=== PATIENT | female | born 1985 | race Caucasian/White ===

== ENCOUNTER 2017-12-28 19:53 | Inpatient (IN) | payer MEDICAID, OTHER ==
[~2017-12-28] VITALS: Ht 160 cm; Wt 69.4 kg
[2017-12-28 20:00] VITALS: BP 105/68
--- NOTE | 2017-12-28 20:30 | NUR ---
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
--- NOTE | 2017-12-28 20:35 | NUR ---
CALLED DR. DELACRUZ WOOD FLOORING SPECIALIST FOR REGRADING FOR NEW ADMISSION WITH NEW ORDER.
[2017-12-28] MEDS ORDERED: MAGNESIUM HYDROXIDE 30 ML LIQUID UDC GT PRN (21:15)
[2017-12-28] MEDS ORDERED: FLEET ENEMA 133 ML BOTTLE RC PRN (21:15)
[2017-12-28] MEDS ORDERED: BISACODYL 10 MG SUPP.RECT RC PRN (21:15)
[2017-12-28] MEDS ORDERED: HYDROCODONE/APAP 5-325MG TABLET PO PRN (21:15)
[2017-12-28] MEDS ORDERED: ACETAMINOPHEN 650 MG/20 ML UDC- FOR SA ONLY GT PRN (21:15)
[2017-12-28] MEDS: DOCUSATE SODIUM 100 MG/10 ML LIQUID UDC GT SCH (21:56)
[2017-12-29 00:10] VITALS: BP 101/63
[2017-12-29] MEDS ORDERED: FIBERSOURCE HN 1000ML LIQUID GT PRN (00:45)
[2017-12-29 04:00] VITALS: BP 103/62
--- NOTE | 2017-12-29 06:48 | NUR ---
PVR AT 00.00=50ML AND 06.17IP=[id number] CONTINUE PVR ORDERED.
[2017-12-29] MEDS ORDERED: HYDROGEN PEROXIDE 3% 118 ML BOTTLE TP PRN (08:00)
[2017-12-29 08:13] VITALS: BP 118/76
[2017-12-29] MEDS: HYDROGEN PEROXIDE 3% 118 ML BOTTLE TP SCH ×2 (08:53→20:37)
[2017-12-29] MEDS: FAMOTIDINE 20 MG TABLET GT SCH ×2 (08:53→20:35)
[2017-12-29] MEDS: MIRALAX 17 GM POWD.PACK GT SCH (08:53)
[2017-12-29] MEDS: DOCUSATE SODIUM 100 MG/10 ML LIQUID UDC GT SCH ×2 (08:53→20:33)
[2017-12-29] MEDS ORDERED: MODAFINIL 100 MG TABLET GT SCH (09:00)
--- NOTE | 2017-12-29 10:00 | NUR ---
SPOKE TO MIGUEL WIGGINS'S MOMAND MADE HER AWARE OF THE PLAN OF CARE,AND NEW ORDERS,PT'S MOM AGREED. Addendum: 12/30/17 at 1742 by HANH TATE RN MOM AND MADE HER AWARE.
--- NOTE | 2017-12-29 15:42 | NUR ---
SW met with patient's mother Mia and obtained signatures on the following forms (forms were translated by JUVENTINO Jorgensen): 1) Conditions of Admission 2) Patient Rights Acknowledgement 3) Documentation of Preferred Intensity of Care 4) Voluntary Prior Express Consent Form 5) [place] Standard Admission Agreement For Longterm Facilities and Intermediate Care Facilities Patient's Bill of Rights provided to patient's mother, along with signed copies of the above forms. SW addressed patient's mother's concerns regarding her desire to stay with patient 24 hours a day. SW allowed Mia to express her feelings, during which Mia became tearful. SW provided supportive counseling and discussed the importance of self-care. Mia expressed understanding and agreement. Mia agreed that she will stay with her daughter until 11 or 12pm, the latest, after which she will go home to rest, before returning in the morning. Charge nurse Serena informed.
[2017-12-29] MEDS ORDERED: CALMOSEPTINE 113 GM OINTMENT TP PRN (15:45)
--- NOTE | 2017-12-29 16:00 | NUR ---
CHRISTIANO informed patient's mother that patient can receive annual dental services and eye exams in subacute. CHRISTIANO asked patient's mother if she would like for SW to schedule the initial appointments, and patient's mother agreed. CHRISTIANO spoke with Janessa at Dr. Ramos's office [phone] and scheduled patient's initial dental exam for 01/11/18. Patient's mother informed. CHRISTIANO then spoke with Marina at Dr. Arellano's office [phone] and scheduled a tentative initial eye exam appointment for 01/08/18. Marina to call back stayer to the date to confirm appointment date/time. Patient's mother informed.
[2017-12-29] MEDS ORDERED: TUBERCULIN,PURIF.PROT.DERIV. 5 TU/0.1 ML TEST ID ONE (17:00)
--- NOTE | 2017-12-29 17:00 | NUR ---
DR AVENDANO CALL BACK ,AWARE OF THE PHARMACY REQUEST TO HAVE A PSYCH CONSULT PROTOCOL BEFORE STARTING PROVIGIL,AWARE THE BLADDER SCAN RESULTS,WITH NEW ORDERS NOTED.
[2017-12-29 20:00] VITALS: BP 101/65
[2017-12-29] MEDS: LEVETIRACETAM 500 MG/5 ML LIQUID UDC GT SCH (20:33)
[2017-12-29] MEDS: CALMOSEPTINE 113 GM OINTMENT TP SCH (20:37)
[2017-12-29] MEDS: TAMSULOSIN HCL 0.4 MG CAP.SR.24H XX SCH (20:37)
[2017-12-29] MEDS: HEPARIN SODIUM,PORCINE 5,000 UNITS/ML VIAL SQ SCH (20:39)
--- NOTE | 2017-12-30 | NUR ---
2000-98.5,105,20,101/65,[id number]%, MOTHER AT BEDSIDE, NO RESPIRATORY DISTRESS,2400-98.8,106,20,102/63,[id number]%,REPOSITIONED, NOT RESPONSIVE TO VERBAL STIMULI, PT CHECKED FREQUENTLY.
[2017-12-30 00:15] VITALS: BP 102/63
[2017-12-30 04:00] VITALS: BP 103/61
[2017-12-30 08:00] VITALS: BP 97/62
[2017-12-30] MEDS: LEVETIRACETAM 500 MG/5 ML LIQUID UDC GT SCH ×2 (08:46→20:39)
[2017-12-30] MEDS: MIRALAX 17 GM POWD.PACK GT SCH (08:46)
[2017-12-30] MEDS: FAMOTIDINE 20 MG TABLET GT SCH ×2 (08:46→20:41)
[2017-12-30] MEDS: DOCUSATE SODIUM 100 MG/10 ML LIQUID UDC GT SCH ×2 (08:46→20:39)
[2017-12-30] MEDS: CALMOSEPTINE 113 GM OINTMENT TP SCH ×3 (08:47→20:42)
[2017-12-30] MEDS: HYDROGEN PEROXIDE 3% 118 ML BOTTLE TP SCH ×2 (08:47→20:42)
[2017-12-30] MEDS: HEPARIN SODIUM,PORCINE 5,000 UNITS/ML VIAL SQ SCH ×2 (08:59→20:44)
--- NOTE | 2017-12-30 12:30 | NUR ---
PT TRANSFER TO RADIOLOGY FOR CT SCAN OF HEAD WITHOUT CONTRAST,ACCOMPANIED BY THE RADIOLOGIST ,PRIMARY NURSE AND THE MOTHER,IN STABLE CONDITION.
--- NOTE | 2017-12-30 13:08 | NUR ---
PT BACK FROM RADIOLOGY ,IN STABLE CONDITION.
--- NOTE | 2017-12-30 14:04 | NUR ---
Psychosocial assessment completed.
--- NOTE | 2017-12-30 14:30 | NUR ---
Resident noted with sacral fissure while cleaning pt. charge nurse made aware. Picture and measurements were taken and documented. MD made aware with new orders noted and carried out. Initial treatment done as ordered pt.tolerated well. Site remains clean and with no signs of bleeding noted. kept pt clean and comfortable.
--- NOTE | 2017-12-30 16:30 | NUR ---
LEFT MESSAGE TO ROMANA REGARDING THE H AND P,NEEDS TO BE COMPLETED ,SPOKE TO AJ.
--- NOTE | 2017-12-30 17:34 | NUR ---
SEEN AND EXAMINED BY DR ELAM ,WITH NO NEW ORDERS NOTED.
[2017-12-30 20:00] VITALS: BP 102/57
[2017-12-30] MEDS: NEOMY/BACITRA/POLYMYXIN B OINT UD PACKET TP SCH (20:42)
[2017-12-30] MEDS: TAMSULOSIN HCL 0.4 MG CAP.SR.24H XX SCH (20:43)
--- NOTE | 2017-12-30 22:00 | NUR ---
Patient is afebrile, trach intact and patent, no signs of any respiratory distress noted, on aspiration and seizure precaution, JT/GT working , fluids given as ordered, kept clean and comfortable , needs attended, Mother at bedside.
--- NOTE | 2017-12-30 23:04 | NUR ---
Afebrile, on seizure and aspiration precautions, gt/JT intact, feeding tolerating well, no nausea or vomiting noted, head and abdominal scabs are clean and no bleeding noted, turned and repositioned, kept clean and comfortable.
[2017-12-31 00:15] VITALS: BP 110/60
[2017-12-31 04:00] VITALS: BP 112/64
[2017-12-31] MEDS: FIBERSOURCE HN 1000ML LIQUID GT PRN ×2 (04:30→23:13)
[2017-12-31 08:00] VITALS: BP 114/71
[2017-12-31] MEDS: LEVETIRACETAM 500 MG/5 ML LIQUID UDC GT SCH ×2 (08:57→20:55)
[2017-12-31] MEDS: DOCUSATE SODIUM 100 MG/10 ML LIQUID UDC GT SCH ×2 (08:57→20:55)
[2017-12-31] MEDS: CALMOSEPTINE 113 GM OINTMENT TP SCH ×4 (08:57→20:57)
[2017-12-31] MEDS: FAMOTIDINE 20 MG TABLET GT SCH ×2 (08:57→20:56)
[2017-12-31] MEDS: MIRALAX 17 GM POWD.PACK GT SCH (08:57)
[2017-12-31] MEDS: HEPARIN SODIUM,PORCINE 5,000 UNITS/ML VIAL SQ SCH ×2 (08:57→20:59)
[2017-12-31] MEDS: NEOMY/BACITRA/POLYMYXIN B OINT UD PACKET TP SCH ×2 (08:58→21:55)
[2017-12-31] MEDS: HYDROGEN PEROXIDE 3% 118 ML BOTTLE TP SCH ×2 (08:58→20:59)
--- NOTE | 2017-12-31 10:36 | NUR ---
DR. WYNN AWARE ALREADY OF CT SCAN OF HEAD WITHOUT CONTRAST AND STATED THAT HE ALREADY CALLED NEUROLOGIST HIMSELF,AND HE WILL FIND OUT IF PT. HAS GT OR J TUBE.
--- NOTE | 2017-12-31 10:40 | NUR ---
CORRECT ENTRY:DR. HAQ CALLED HIMSELF A PSYCHIATRISY DR. AGRAWAL FILOMENA NOT A NEUROLOGIST.
--- NOTE | 2017-12-31 17:00 | NUR ---
SEEN BY DR. ELAM AND WITH NEW ORDERS CARRIED OUT PT'S MOTHER IN AGREEMEMENT.SPUTUM C&S SPECIMEN WAS COLLECTED.
--- NOTE | 2017-12-31 19:02 | NUR ---
PT. SEEN BY DR. ADEBAYO BUTT (PSYCH) AND SPOKE WITH PT'S MOTHER AND IN AGREEMENT WITH NEW ORDER FOR PROVIGIL .STATED IN VIETNAMESE TO CH. NURSE THAT SHE WAS ALREADY FAMILIAR WITH MEDICATION PROVIGIL AND SHE BELIEVES THAT IS DOING GOOD TO PT.
--- NOTE | 2017-12-31 19:05 | NUR ---
MIGUEL (PT'S MOTHER ) SIGNED CONSENT FOR PROVIFIL.
[2017-12-31 20:00] VITALS: BP 105/65
[2017-12-31] MEDS: TAMSULOSIN HCL 0.4 MG CAP.SR.24H XX SCH (20:59)
[2018-01-01] MEDS: MODAFINIL 100 MG TABLET GT SCH (06:00)
[2018-01-01 08:06] VITALS: BP 98/62
[2018-01-01] MEDS: LEVETIRACETAM 500 MG/5 ML LIQUID UDC GT SCH ×2 (09:18→21:16)
[2018-01-01] MEDS: DOCUSATE SODIUM 100 MG/10 ML LIQUID UDC GT SCH ×2 (09:18→21:15)
[2018-01-01] MEDS: MIRALAX 17 GM POWD.PACK GT SCH (09:19)
[2018-01-01] MEDS: CALMOSEPTINE 113 GM OINTMENT TP SCH ×4 (09:19→21:18)
[2018-01-01] MEDS: NEOMY/BACITRA/POLYMYXIN B OINT UD PACKET TP SCH ×2 (09:20→21:18)
[2018-01-01] MEDS: FIBERSOURCE HN 1000ML LIQUID GT PRN (09:20)
[2018-01-01] MEDS: HYDROGEN PEROXIDE 3% 118 ML BOTTLE TP SCH ×2 (09:20→21:18)
[2018-01-01] MEDS: FAMOTIDINE 20 MG TABLET GT SCH ×2 (09:27→21:16)
[2018-01-01] MEDS: HEPARIN SODIUM,PORCINE 5,000 UNITS/ML VIAL SQ SCH ×2 (09:28→21:28)
--- NOTE | 2018-01-01 11:15 | NUR ---
DR. NGHIA Stallworth(PSYCH) SIGNED CONSET FOR PROVIGIL.
--- NOTE | 2018-01-01 14:28 | NUR ---
SW met with patient's mother today to check-in on how she and patients are adjusting to the unit. Patient's mother expressed feeling better then she did the first couple of days, and stated being thankful that the nurses are all very nice and helpful here. Patient's mother discussed some of the additional responsibilities that she will now have, which will include caring for her 3 grandchildren who were temporarily living with their paternal grandmother. SW provided supportive counseling as patient's mother expressed some of challenges that she has ahead of herself as she tries to adjust to caring for her daughter and caring for her grandchildren. SW assisted patient's mother in exploring some avenues of support for the grandchildren, especially through their school. Patient's mother agreed. Patient's mother also expressed anxiously awaiting for patient's father, who has been trying to come to the [place] from [facility], but plans are still unknown. SW then inquired about contact information for patient's , who is currently incarcerated. Patient's mother stated that although she and the children speak with him daily, she did not have contact information on him because he is the one who calls them. SW asked patient's mother if she would be able to obtain the name and contact information of the [facility] that he is currently in, and provide it to SW, explaining to the mother that it is important to have this information on file just in case it becomes necessary to contact patient's . Patient's mother agreed and stated that she will try to get this information to the SW.
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
[2018-01-01] MEDS: TAMSULOSIN HCL 0.4 MG CAP.SR.24H XX SCH (21:18)
[2018-01-01 22:00] VITALS: BP 91/58
[2018-01-02] MEDS: ACETAMINOPHEN 650 MG/20 ML UDC- FOR SA ONLY GT PRN ×2 (00:07→19:14)
[2018-01-02] MEDS: MODAFINIL 100 MG TABLET GT SCH (06:00)
[2018-01-02 08:00] VITALS: BP 101/57
[2018-01-02] MEDS: FAMOTIDINE 20 MG TABLET GT SCH ×2 (08:46→21:02)
[2018-01-02] MEDS: HEPARIN SODIUM,PORCINE 5,000 UNITS/ML VIAL SQ SCH ×2 (08:47→21:00)
[2018-01-02] MEDS: MIRALAX 17 GM POWD.PACK GT SCH (08:48)
[2018-01-02] MEDS: DOCUSATE SODIUM 100 MG/10 ML LIQUID UDC GT SCH ×2 (08:48→21:02)
[2018-01-02] MEDS: CALMOSEPTINE 113 GM OINTMENT TP SCH ×4 (08:48→21:02)
[2018-01-02] MEDS: HYDROGEN PEROXIDE 3% 118 ML BOTTLE TP SCH ×2 (08:48→21:02)
[2018-01-02] MEDS: LEVETIRACETAM 500 MG/5 ML LIQUID UDC GT SCH ×2 (08:48→21:02)
[2018-01-02] MEDS: NEOMY/BACITRA/POLYMYXIN B OINT UD PACKET TP SCH ×2 (08:49→21:02)
[2018-01-02] MEDS: TAMSULOSIN HCL 0.4 MG CAP.SR.24H XX SCH (21:02)
[2018-01-02 22:27] VITALS: BP 91/53
[2018-01-03] MEDS: MODAFINIL 100 MG TABLET GT SCH (05:04)
[2018-01-03 07:59] VITALS: BP 93/57
[2018-01-03] MEDS: DOCUSATE SODIUM 100 MG/10 ML LIQUID UDC GT SCH ×2 (08:25→20:44)
[2018-01-03] MEDS: CALMOSEPTINE 113 GM OINTMENT TP SCH ×4 (08:25→20:45)
[2018-01-03] MEDS: FAMOTIDINE 20 MG TABLET GT SCH ×2 (08:25→20:45)
[2018-01-03] MEDS: LEVETIRACETAM 500 MG/5 ML LIQUID UDC GT SCH ×2 (08:25→20:45)
[2018-01-03] MEDS: HEPARIN SODIUM,PORCINE 5,000 UNITS/ML VIAL SQ SCH ×2 (08:25→20:47)
[2018-01-03] MEDS: MIRALAX 17 GM POWD.PACK GT SCH (08:25)
[2018-01-03] MEDS: NEOMY/BACITRA/POLYMYXIN B OINT UD PACKET TP SCH ×2 (08:26→20:46)
[2018-01-03] MEDS: HYDROGEN PEROXIDE 3% 118 ML BOTTLE TP SCH ×2 (08:26→20:46)
[2018-01-03] MEDS: FIBERSOURCE HN 1000ML LIQUID GT PRN (08:47)
[2018-01-03] MEDS: TAMSULOSIN HCL 0.4 MG CAP.SR.24H XX SCH (20:46)
[2018-01-03 22:00] VITALS: BP 117/72
[2018-01-04] MEDS: MODAFINIL 100 MG TABLET GT SCH (05:40)
[2018-01-04 06:38] LABS: BASOPHILS % (AUTO) 0.6 % (0.0-2.0); EOSINOPHILS # (AUTO) 0.2 K/uL (0.0-0.7); EOSINOPHILS % (AUTO) 2.6 % (0.0-7.0); HEMATOCRIT 34.9 % (31.2-41.9); HEMOGLOBIN 11.6 g/dL (10.9-14.3); LYMPHOCYTES # (AUTO) 1.5 K/uL (20.0-40.0); LYMPHOCYTES % (AUTO) 19.3 % (20.5-51.5); MEAN CORPUSCULAR HEMOGLOBIN 26.5 uug (24.7-32.8); MEAN CORPUSCULAR HGB CONC 33 g/dL (32.3-35.6); MEAN CORPUSCULAR VOLUME 79.9 fL (75.5-95.3); MONOCYTES # (AUTO) 0.4 K/uL (2.0-10.0); MONOCYTES % (AUTO) 5.2 % (0.0-11.0); NEUTROPHILS # (AUTO) 5.5 K/uL (1.8-8.9); NEUTROPHILS % (AUTO) 72.3 % (38.5-71.5); PLATELET COUNT (AUTO) 250 K/uL (179-408); RED BLOOD CELL COUNT(AUTO) 4.36 MIL/uL (3.63-4.92); WHITE BLOOD COUNT (AUTO) 7.6 K/uL (3.8-11.8)
[2018-01-04 07:04] LABS: BILIRUBIN,TOTAL 0.2 mg/dL (0.2-1.0); CREATININE 0.6 mg/dL (0.6-1.3); MAGNESIUM 2.2 mg/dL (1.8-2.4); PHOSPHOROUS 4.5 mg/dL (2.5-4.9); TOTAL PROTEIN, SERUM 7.1 g/dL (6.4-8.2)
[2018-01-04 08:12] VITALS: BP 105/59
[2018-01-04] MEDS: DOCUSATE SODIUM 100 MG/10 ML LIQUID UDC GT SCH ×2 (08:56→21:48)
[2018-01-04] MEDS: FAMOTIDINE 20 MG TABLET GT SCH ×2 (08:56→21:49)
[2018-01-04] MEDS: LEVETIRACETAM 500 MG/5 ML LIQUID UDC GT SCH ×2 (08:56→21:48)
[2018-01-04] MEDS: MIRALAX 17 GM POWD.PACK GT SCH (08:56)
[2018-01-04] MEDS: CALMOSEPTINE 113 GM OINTMENT TP SCH ×4 (08:57→21:50)
[2018-01-04] MEDS: HYDROGEN PEROXIDE 3% 118 ML BOTTLE TP SCH ×2 (08:57→21:50)
[2018-01-04] MEDS: NEOMY/BACITRA/POLYMYXIN B OINT UD PACKET TP SCH ×2 (08:57→21:50)
[2018-01-04] MEDS: HEPARIN SODIUM,PORCINE 5,000 UNITS/ML VIAL SQ SCH ×2 (09:24→21:53)
--- NOTE | 2018-01-04 11:59 | NUR ---
CHRISTIANO met with patient's mother Mia and informed her that the next IDT meeting for the patient is scheduled for Thursday01/12/18 at 11am.
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
--- NOTE | 2018-01-04 17:00 | NUR ---
PT'S WILBERTO CALLED TO SUB ACUTE UNIT AND REQUESTING TO KNOW PT'S CONDITION,HE COMPLAINED THAT HER SON ZOLTAN CALLED TO SUBACUTE UNIT AND HE WAS DENIED INFORMATION ABOUT PT'S MEDICAL CONDITION) AND NURSE STATED THAT PT. IS STABLE ENOUGH TO BE IN SUB ACUTE UNIT.CH. NURSE EXPLAINED TO HIM THAT ONLY ADULT RESP. DEMOCRAT CAN RECEIVE MEDICAL INFORMATION NOT MINORS D/T THEY ARE NOT MATURE AND THEIR LACK OF KNOWLEDGE CAN EASILY MISLEAD THEIR JUDGMENT AND GET CONFUSED .HE EXPRESSED CONCERN DUE TO PT. HAD TYLENOL BECAUSE PT'S MOTHER TOLD HIM THAT PT . HAD "FEVER" ,NURSE WAS GOING TO KEEP TALKING TO PT. BUT THE CALL WAS INTERRUPTED AND HE STATED THAT HE WAS IN [facility].
--- NOTE | 2018-01-04 17:00 | NUR ---
PT'S SON ZOLTAN CALLED AND REQUESTED MEDICAL INFORMATION ABOUT PT.(WANTED TO KNOW "IF PT. HAS STILL HIGH PRESSURE IN HER BRAIN")NURSE DECLINED TO GIVE INFORMATION D/T HE IS A MINOR(HE STATED THAT HE IS 16 YEAR OLD)NURSE STATED THAT ONLY AND ADULT RESP. [employer]IANCE PARTY CAN DO IT.
--- NOTE | 2018-01-04 17:21 | NUR ---
DR. HAQ WAS CALLED AND AWARE OF REG TELEPHONE LINEMAN RECOMMENDATION TO DECREASE FEEDING RATE TO 55ML/HR.PT'S BROTHER LOLI WAS AWARE AND IN AGREEMENT AND ORDER CARRIED OUT.
[2018-01-04 20:00] VITALS: BP 97/63
[2018-01-04] MEDS: TAMSULOSIN HCL 0.4 MG CAP.SR.24H XX SCH (21:50)
[2018-01-04] MEDS: FIBERSOURCE HN 1000ML LIQUID GT PRN (22:54)
[2018-01-05] MEDS: MODAFINIL 100 MG TABLET GT SCH (05:53)
[2018-01-05 08:00] VITALS: BP 108/69
[2018-01-05] MEDS: DOCUSATE SODIUM 100 MG/10 ML LIQUID UDC GT SCH ×2 (08:49→21:28)
[2018-01-05] MEDS: MIRALAX 17 GM POWD.PACK GT SCH (08:49)
[2018-01-05] MEDS: FAMOTIDINE 20 MG TABLET GT SCH ×2 (08:49→21:29)
[2018-01-05] MEDS: LEVETIRACETAM 500 MG/5 ML LIQUID UDC GT SCH ×2 (08:49→21:28)
[2018-01-05] MEDS: HEPARIN SODIUM,PORCINE 5,000 UNITS/ML VIAL SQ SCH ×2 (08:50→21:36)
[2018-01-05] MEDS: NEOMY/BACITRA/POLYMYXIN B OINT UD PACKET TP SCH ×2 (08:51→21:37)
[2018-01-05] MEDS: CALMOSEPTINE 113 GM OINTMENT TP SCH ×4 (08:51→21:37)
[2018-01-05] MEDS: HYDROGEN PEROXIDE 3% 118 ML BOTTLE TP SCH ×2 (08:51→21:37)
--- NOTE | 2018-01-05 11:05 | NUR ---
CHRISTIANO made the written DCFS report today 01/05/2018, as a follow-up to the phone report that was made yesterday, 01/04/18.
--- NOTE | 2018-01-05 11:06 | NUR ---
Patient's mother Mia came to SW office, and had patient's 3 children with her, Alex (14y/o), Terence (12y/o), and Celia 7y/o). SW met with the children; Terence had a question regarding being able to obtain medical information and daily updates about his mother. SW explained to Terence that due to him and his siblings being minors, medical information could not be disclosed to them. SW explained to Terence and the other children that medical information and updates on patient's care could only be discussed with an adult(s) who is a responsible republican (parties) for the patient. Terence expressed understanding. Patient's mother Mia was present during this discussion and also expressed understanding.
[2018-01-05 20:00] VITALS: BP 102/73
[2018-01-05] MEDS: TAMSULOSIN HCL 0.4 MG CAP.SR.24H XX SCH (21:37)
[2018-01-05] MEDS: FIBERSOURCE HN 1000ML LIQUID GT PRN (23:16)
--- NOTE | 2018-01-06 02:06 | NUR ---
Patient is sleeping comfortably in bed, afebrile, no signs of any distress noted, on seizure and aspiration precautions, kept clean and comfortable, needs anticipated.
[2018-01-06] MEDS: MODAFINIL 100 MG TABLET GT SCH (06:15)
[2018-01-06 08:08] VITALS: BP 95/56
[2018-01-06] MEDS: MIRALAX 17 GM POWD.PACK GT SCH (08:28)
[2018-01-06] MEDS: FAMOTIDINE 20 MG TABLET GT SCH ×2 (08:28→21:36)
[2018-01-06] MEDS: HEPARIN SODIUM,PORCINE 5,000 UNITS/ML VIAL SQ SCH ×2 (08:28→21:37)
[2018-01-06] MEDS: CALMOSEPTINE 113 GM OINTMENT TP SCH ×4 (08:28→21:36)
[2018-01-06] MEDS: LEVETIRACETAM 500 MG/5 ML LIQUID UDC GT SCH ×2 (08:28→21:36)
[2018-01-06] MEDS: DOCUSATE SODIUM 100 MG/10 ML LIQUID UDC GT SCH ×2 (08:28→21:36)
[2018-01-06] MEDS: NEOMY/BACITRA/POLYMYXIN B OINT UD PACKET TP SCH ×2 (08:29→21:36)
[2018-01-06] MEDS: HYDROGEN PEROXIDE 3% 118 ML BOTTLE TP SCH ×2 (08:29→21:36)
--- NOTE | 2018-01-06 11:41 | NUR ---
CHRISTIANO met with patient's mother Mia this morning to check in on her. Mia was receptive to meeting with CHRISTIANO and greeted SW pleasantly. Mia and CHRISTIANO discussed how Mia was feeling, and how patient's children were feeling after they visited patient yesterday. SW allowed Mia to discuss her thoughts and feelings, and provided supportive counseling. CHRISTIANO then generated a discussion regarding patient's 's current incarceration and inquired about a possible release date, to which Mia stated not being aware of any release plans/date. CHRISTIANO then discussed and provided some information about conservatorship to Mia, and explained to Mia that this may be an option for her to consider in the future, if she feels it is necessary for her to become patient's legal guardian. Mia thanked CHRISTIANO for her time and support, and stated that she will talk to her son and follow-up with CHRISTIANO regarding their decision for the future.
[2018-01-06 20:00] VITALS: BP 122/71
[2018-01-06] MEDS: TAMSULOSIN HCL 0.4 MG CAP.SR.24H XX SCH (21:36)
[2018-01-06] MEDS: FIBERSOURCE HN 1000ML LIQUID GT PRN (21:41)
[2018-01-07] MEDS: MODAFINIL 100 MG TABLET GT SCH (05:29)
--- NOTE | 2018-01-07 07:30 | NUR ---
PT TRACH CHANGE WILL NOT BE DONE ON THIS MONTH PER RT FISH FROG OR OYSTER FARMER. PT TRACH CHANGE WILL BE DONE THE FOLLOWING MONTH. SUB ACUTE NURSE AWARE.
[2018-01-07 08:08] VITALS: BP 100/61
[2018-01-07] MEDS: NEOMY/BACITRA/POLYMYXIN B OINT UD PACKET TP SCH ×2 (08:51→21:33)
[2018-01-07] MEDS: LEVETIRACETAM 500 MG/5 ML LIQUID UDC GT SCH ×2 (08:51→21:26)
[2018-01-07] MEDS: HEPARIN SODIUM,PORCINE 5,000 UNITS/ML VIAL SQ SCH ×2 (08:51→21:32)
[2018-01-07] MEDS: MIRALAX 17 GM POWD.PACK GT SCH (08:51)
[2018-01-07] MEDS: HYDROGEN PEROXIDE 3% 118 ML BOTTLE TP SCH ×2 (08:51→21:33)
[2018-01-07] MEDS: CALMOSEPTINE 113 GM OINTMENT TP SCH ×4 (08:51→21:33)
[2018-01-07] MEDS: FAMOTIDINE 20 MG TABLET GT SCH ×2 (08:51→21:26)
[2018-01-07] MEDS: DOCUSATE SODIUM 100 MG/10 ML LIQUID UDC GT SCH ×2 (08:51→21:25)
[2018-01-07 20:00] VITALS: BP 99/65
[2018-01-07] MEDS: TAMSULOSIN HCL 0.4 MG CAP.SR.24H XX SCH (21:33)
[2018-01-08] MEDS: ACETAMINOPHEN 650 MG/20 ML UDC- FOR SA ONLY GT PRN (01:07)
[2018-01-08] MEDS: MODAFINIL 100 MG TABLET GT SCH (05:49)
[2018-01-08 08:06] VITALS: BP 99/62
[2018-01-08] MEDS: DOCUSATE SODIUM 100 MG/10 ML LIQUID UDC GT SCH ×2 (08:45→21:45)
[2018-01-08] MEDS: FAMOTIDINE 20 MG TABLET GT SCH ×2 (08:45→21:35)
[2018-01-08] MEDS: LEVETIRACETAM 500 MG/5 ML LIQUID UDC GT SCH ×2 (08:45→21:35)
[2018-01-08] MEDS: MIRALAX 17 GM POWD.PACK GT SCH (08:45)
[2018-01-08] MEDS: CALMOSEPTINE 113 GM OINTMENT TP SCH ×4 (08:46→21:35)
[2018-01-08] MEDS: HYDROGEN PEROXIDE 3% 118 ML BOTTLE TP SCH ×2 (08:46→21:35)
[2018-01-08] MEDS: NEOMY/BACITRA/POLYMYXIN B OINT UD PACKET TP SCH ×2 (08:46→21:35)
[2018-01-08] MEDS: HEPARIN SODIUM,PORCINE 5,000 UNITS/ML VIAL SQ SCH ×2 (08:46→21:46)
--- NOTE | 2018-01-08 12:21 | NUR ---
Spoke with Terence and consent given to receive pneumococcal vaccine.
[2018-01-08] MEDS ORDERED: PNEUMOCOCCAL 23-VAL P-SAC VAC 0.5 ML VIAL IM ONE (15:00)
--- NOTE | 2018-01-08 17:00 | NUR ---
Resident was given the pneumococcal vaccine as ordered with consent from the . Pt.tolerated vaccine well no adverse reaction at this time. Pt. remains with no signs of pain or discomfort at this time, Kept pt clean and comfortable. Will continue to monitor for any significant changes. Vital signs B/P 116/55 temp 98.9 pulse 79 resp 18/min 02 sat 99%.
[2018-01-08 20:21] VITALS: BP 107/71
[2018-01-08] MEDS: TAMSULOSIN HCL 0.4 MG CAP.SR.24H XX SCH (21:35)
--- NOTE | 2018-01-09 02:36 | NUR ---
98.8, no adverse reaction from pneumococcal vaccine,no respiratory distress noted.
[2018-01-09] MEDS: MODAFINIL 100 MG TABLET GT SCH (05:18)
[2018-01-09 08:06] VITALS: BP 108/62
[2018-01-09] MEDS: DOCUSATE SODIUM 100 MG/10 ML LIQUID UDC GT SCH ×2 (08:36→20:52)
[2018-01-09] MEDS: LEVETIRACETAM 500 MG/5 ML LIQUID UDC GT SCH ×2 (08:36→20:52)
[2018-01-09] MEDS: MIRALAX 17 GM POWD.PACK GT SCH (08:37)
[2018-01-09] MEDS: FAMOTIDINE 20 MG TABLET GT SCH ×2 (08:39→20:53)
[2018-01-09] MEDS: CALMOSEPTINE 113 GM OINTMENT TP SCH ×3 (08:40→21:02)
[2018-01-09] MEDS: NEOMY/BACITRA/POLYMYXIN B OINT UD PACKET TP SCH (08:40)
[2018-01-09] MEDS: HYDROGEN PEROXIDE 3% 118 ML BOTTLE TP SCH ×2 (08:40→21:03)
[2018-01-09] MEDS: HEPARIN SODIUM,PORCINE 5,000 UNITS/ML VIAL SQ SCH ×2 (08:44→21:14)
--- NOTE | 2018-01-09 13:30 | NUR ---
Patient in bed calm with no acute distress noted. S/P pneumococcal vaccine with Temp 98.1, no s/s of infection noted, no adverse reaction noted. Will continue to monitor.
[2018-01-09 20:26] VITALS: BP 106/65
[2018-01-09] MEDS: TAMSULOSIN HCL 0.4 MG CAP.SR.24H XX SCH (21:03)
--- NOTE | 2018-01-10 01:19 | NUR ---
temp-97.5, no respiratory distress noted,post void residual bladder scan checked-254ml, sleeping long hours.
[2018-01-10] MEDS: MODAFINIL 100 MG TABLET GT SCH (06:14)
[2018-01-10 08:06] VITALS: BP 106/65
[2018-01-10] MEDS: LEVETIRACETAM 500 MG/5 ML LIQUID UDC GT SCH ×2 (09:00→21:22)
[2018-01-10] MEDS: FAMOTIDINE 20 MG TABLET GT SCH ×2 (09:00→21:22)
[2018-01-10] MEDS: DOCUSATE SODIUM 100 MG/10 ML LIQUID UDC GT SCH ×2 (09:00→21:22)
[2018-01-10] MEDS: MIRALAX 17 GM POWD.PACK GT SCH (09:00)
[2018-01-10] MEDS: CALMOSEPTINE 113 GM OINTMENT TP SCH ×2 (09:01→21:22)
[2018-01-10] MEDS: HYDROGEN PEROXIDE 3% 118 ML BOTTLE TP SCH ×2 (09:01→21:22)
[2018-01-10] MEDS: HEPARIN SODIUM,PORCINE 5,000 UNITS/ML VIAL SQ SCH ×2 (09:01→21:00)
[2018-01-10] MEDS: FIBERSOURCE HN 1000ML LIQUID GT PRN (18:49)
[2018-01-10] MEDS: TAMSULOSIN HCL 0.4 MG CAP.SR.24H XX SCH (21:22)
[2018-01-10 21:29] VITALS: BP 92/58
[2018-01-11] MEDS: MODAFINIL 100 MG TABLET GT SCH (05:44)
--- NOTE | 2018-01-11 07:33 | NUR ---
s/p Pneumococcal vaccine right deltoid, no adverse reaction noted. Remains afebrile.
[2018-01-11 08:00] VITALS: BP 108/69
[2018-01-11] MEDS: MIRALAX 17 GM POWD.PACK GT SCH (08:16)
[2018-01-11] MEDS: DOCUSATE SODIUM 100 MG/10 ML LIQUID UDC GT SCH ×2 (08:16→21:19)
[2018-01-11] MEDS: FAMOTIDINE 20 MG TABLET GT SCH ×2 (08:16→21:19)
[2018-01-11] MEDS: LEVETIRACETAM 500 MG/5 ML LIQUID UDC GT SCH ×2 (08:16→21:19)
[2018-01-11] MEDS: CALMOSEPTINE 113 GM OINTMENT TP SCH ×2 (08:17→21:19)
[2018-01-11] MEDS: HEPARIN SODIUM,PORCINE 5,000 UNITS/ML VIAL SQ SCH ×2 (08:17→21:00)
[2018-01-11] MEDS: HYDROGEN PEROXIDE 3% 118 ML BOTTLE TP SCH ×2 (08:17→21:19)
--- NOTE | 2018-01-11 12:00 | NUR ---
Seen by Day ALMAGUER and Dr. Villeda, patient voiding without difficulty, per Md pvr d/c. also podiatry conslut ordered (L+R toe infection), Mother at bedside and notified of new orders.
--- NOTE | 2018-01-11 12:34 | NUR ---
Patient's seen by echocardiography radiology technologist Dr. Arellano today for her initial eye exam. See optometry consultation notes in chart for details.
--- NOTE | 2018-01-11 12:44 | NUR ---
Patient seen by dentist Dr. Ramos today for her initial dental exam; see dental notes for details.
[2018-01-11 20:53] VITALS: BP 92/61
[2018-01-11] MEDS: TAMSULOSIN HCL 0.4 MG CAP.SR.24H XX SCH (21:19)
[2018-01-12] MEDS: ACETAMINOPHEN 650 MG/20 ML UDC- FOR SA ONLY GT PRN (01:56)
[2018-01-12] MEDS: MODAFINIL 100 MG TABLET GT SCH (05:32)
[2018-01-12 08:00] VITALS: BP 97/62
[2018-01-12] MEDS: DOCUSATE SODIUM 100 MG/10 ML LIQUID UDC GT SCH ×2 (08:17→20:37)
[2018-01-12] MEDS: LEVETIRACETAM 500 MG/5 ML LIQUID UDC GT SCH ×2 (08:17→20:37)
[2018-01-12] MEDS: FAMOTIDINE 20 MG TABLET GT SCH ×2 (08:17→20:37)
[2018-01-12] MEDS: MIRALAX 17 GM POWD.PACK GT SCH (08:17)
[2018-01-12] MEDS: CALMOSEPTINE 113 GM OINTMENT TP SCH ×2 (08:18→20:37)
[2018-01-12] MEDS: HYDROGEN PEROXIDE 3% 118 ML BOTTLE TP SCH ×2 (08:18→20:37)
[2018-01-12] MEDS: HEPARIN SODIUM,PORCINE 5,000 UNITS/ML VIAL SQ SCH ×2 (08:29→20:39)
[2018-01-12] MEDS: FIBERSOURCE HN 1000ML LIQUID GT PRN (10:36)
--- NOTE | 2018-01-12 13:00 | NUR ---
Seen and examined by DR Hector with no new orders noted.
--- NOTE | 2018-01-12 14:17 | NUR ---
CHRISTIANO spoke with cupola liner Dr. Chavez [phone] and informed him of the podiatry consult order for patient. Dr. Chavez informed SW that he will see patient on 01/16/18. CHRISTIANO informed [facility] specialists Miriam.
--- NOTE | 2018-01-12 16:33 | NUR ---
INTERDISCIPLINARY PLAN OF CARE CONFERENCE was held today. Patient's mother Mia was present at the meeting. Dr. Hector and the Interdisciplinary Team reviewed the current plan of care in detail. RN provided updates on patient's medical condition. See RN IDT conference notes. SW reported that patient had her initial optometry and dental exams on 01/11/18, and that SW will follow-up on podiatry consult order. No major changes since admission. See all disciplines IDT notes and physician's progress notes for additional details. Addendum: 01/12/18 at 1636 by SAMI ALVARADO Patient's mother expressed not having any questions/concerns at this time, and thanked the IDT team for their work.
--- NOTE | 2018-01-12 17:51 | NUR ---
Pharmacy Update from Today's 01/12/18 IDT Meeting: VS: Temp 97.7 BP 108/69 HR 89 LABS: (from 01/04/18) Wbc 7.6H/H 11.6/34.9Plt 250 Na 136K 4.0Cl 101CO2 26BUN/SCr 9/0.6 BS 138Ca 8.9Phos 4.5Mg 2.2 MEDICATION USE REVIEWED: > Pt is on Keppra 1000mg q12hr since admission 12/29/17. Calculated CrCl 145.3 ml/min, renal fxn ok for the current dose. No seizure activity reported. > Pt is on modafinil 50mg daily, initiated per outside neurology at [facility] before transfer (Case reports of use post-stroke), continued per psych for possible increased ENCAPSULATOR stimulation/fatigue and responsiveness per pt family reports of improved movement in limbs, response to verbal commands. Continued trial per family request at this time. > Pt on Heparin 5000units q12hr for DVT prophylaxis, last plt 250, no bleeding reported since admit > Pt on famotidine 20mg q12hr for GI prophylaxis, renal fxn ok for dose. >PRN MED USAGE: (Nov) Tylenol x 2 bisacodyl x 1 [place] x 0 MOM x 0 Fleet enema (if MOM ineffective) x 0 Patient was reviewed and discussed at IDT with family in attendance and team introductions given. Rx discussed with family of off-labeled use of modafinil, noting that current literature does not have good evidence to prove efficacy of medication pts with intercranial trauma at this time. Rx also informed family of side effects to be noted and watch for and need for discontinuation if pt were to experience any including agitation/headaches, hot flashes, increased vitals, insomnia. Family affirmed understanding, and wished to continue medication, with MD noting that family concerns with tensing in limbs may be from pt's neurological condition at the moment. Will continue to monitor for now
[2018-01-12] MEDS: TAMSULOSIN HCL 0.4 MG CAP.SR.24H XX SCH (20:37)
[2018-01-12 20:46] VITALS: BP 92/61
[2018-01-13] MEDS: MODAFINIL 100 MG TABLET GT SCH (06:06)
[2018-01-13 08:13] VITALS: BP 113/61
[2018-01-13] MEDS: DOCUSATE SODIUM 100 MG/10 ML LIQUID UDC GT SCH ×2 (08:20→21:30)
[2018-01-13] MEDS: CALMOSEPTINE 113 GM OINTMENT TP SCH ×2 (08:21→21:32)
[2018-01-13] MEDS: MIRALAX 17 GM POWD.PACK GT SCH (08:21)
[2018-01-13] MEDS: HYDROGEN PEROXIDE 3% 118 ML BOTTLE TP SCH ×2 (08:21→21:32)
[2018-01-13] MEDS: FAMOTIDINE 20 MG TABLET GT SCH ×2 (08:21→21:30)
[2018-01-13] MEDS: LEVETIRACETAM 500 MG/5 ML LIQUID UDC GT SCH ×2 (08:21→21:30)
[2018-01-13] MEDS: HEPARIN SODIUM,PORCINE 5,000 UNITS/ML VIAL SQ SCH ×2 (08:23→21:32)
[2018-01-13 20:00] VITALS: BP 92/60
[2018-01-13] MEDS: TAMSULOSIN HCL 0.4 MG CAP.SR.24H XX SCH (21:32)
[2018-01-14] MEDS: MODAFINIL 100 MG TABLET GT SCH (05:42)
[2018-01-14 08:00] VITALS: BP 93/61
[2018-01-14] MEDS: LEVETIRACETAM 500 MG/5 ML LIQUID UDC GT SCH ×2 (08:14→21:18)
[2018-01-14] MEDS: FAMOTIDINE 20 MG TABLET GT SCH ×2 (08:14→21:20)
[2018-01-14] MEDS: MIRALAX 17 GM POWD.PACK GT SCH (08:14)
[2018-01-14] MEDS: DOCUSATE SODIUM 100 MG/10 ML LIQUID UDC GT SCH ×2 (08:14→21:18)
[2018-01-14] MEDS: HEPARIN SODIUM,PORCINE 5,000 UNITS/ML VIAL SQ SCH ×2 (08:17→21:21)
[2018-01-14] MEDS: CALMOSEPTINE 113 GM OINTMENT TP SCH ×2 (08:18→21:22)
[2018-01-14] MEDS: HYDROGEN PEROXIDE 3% 118 ML BOTTLE TP SCH ×2 (08:18→21:22)
[2018-01-14] MEDS: FIBERSOURCE HN 1000ML LIQUID GT PRN (13:02)
--- NOTE | 2018-01-14 14:00 | NUR ---
REPORTED TO CH. NURSE BY NATURAL GAS TECHNICIAN THAT PT. BITING HER INSIDE LOWER LIP AT TIMES SPECIALLY WHEN ORAL CARE IS DONE PT. ATTEMPTS TO CLINCH TEETH WHEN THE ORAL SUCTION TUBE IS USED .
[2018-01-14 20:00] VITALS: BP 105/66
[2018-01-14] MEDS: NEOMY/BACITRA/POLYMYXIN B OINT UD PACKET TP SCH (21:22)
[2018-01-14] MEDS: TAMSULOSIN HCL 0.4 MG CAP.SR.24H XX SCH (21:22)
--- NOTE | 2018-01-14 23:35 | NUR ---
Seen and examined by TRIPP Dalton with no new order.
[2018-01-15] MEDS: MODAFINIL 100 MG TABLET GT SCH (05:31)
[2018-01-15 08:00] VITALS: BP 100/67
[2018-01-15] MEDS: MIRALAX 17 GM POWD.PACK GT SCH (08:29)
[2018-01-15] MEDS: FAMOTIDINE 20 MG TABLET GT SCH ×2 (08:29→20:40)
[2018-01-15] MEDS: LEVETIRACETAM 500 MG/5 ML LIQUID UDC GT SCH ×2 (08:29→20:40)
[2018-01-15] MEDS: DOCUSATE SODIUM 100 MG/10 ML LIQUID UDC GT SCH ×2 (08:29→20:39)
[2018-01-15] MEDS: HYDROGEN PEROXIDE 3% 118 ML BOTTLE TP SCH ×2 (08:30→20:43)
[2018-01-15] MEDS: HEPARIN SODIUM,PORCINE 5,000 UNITS/ML VIAL SQ SCH ×2 (08:30→20:42)
[2018-01-15] MEDS: CALMOSEPTINE 113 GM OINTMENT TP SCH ×2 (08:30→20:43)
[2018-01-15] MEDS: NEOMY/BACITRA/POLYMYXIN B OINT UD PACKET TP SCH ×2 (08:30→20:44)
[2018-01-15 20:00] VITALS: BP 102/66
[2018-01-15] MEDS: TAMSULOSIN HCL 0.4 MG CAP.SR.24H XX SCH (20:44)
[2018-01-16] MEDS: MODAFINIL 100 MG TABLET GT SCH (05:16)
[2018-01-16] MEDS: MIRALAX 17 GM POWD.PACK GT SCH (08:17)
[2018-01-16] MEDS: FAMOTIDINE 20 MG TABLET GT SCH ×2 (08:17→21:12)
[2018-01-16] MEDS: LEVETIRACETAM 500 MG/5 ML LIQUID UDC GT SCH ×2 (08:17→21:12)
[2018-01-16] MEDS: DOCUSATE SODIUM 100 MG/10 ML LIQUID UDC GT SCH ×2 (08:17→21:12)
[2018-01-16] MEDS: NEOMY/BACITRA/POLYMYXIN B OINT UD PACKET TP SCH ×3 (08:18→21:12)
[2018-01-16] MEDS: HYDROGEN PEROXIDE 3% 118 ML BOTTLE TP SCH ×2 (08:18→21:12)
[2018-01-16] MEDS: CALMOSEPTINE 113 GM OINTMENT TP SCH ×2 (08:18→21:12)
[2018-01-16] MEDS: HEPARIN SODIUM,PORCINE 5,000 UNITS/ML VIAL SQ SCH ×2 (08:18→21:13)
--- NOTE | 2018-01-16 10:00 | NUR ---
PT'S MOTHER PRESENT AND EDUCATED AND REASSURED RE:TRACHEAL AND ORAL SUCTION PROCEDURE AND CHANGING WEEKLY P. MIST CIRCUIT D/T PT'S MOTHER INTERFERING IN THE MIDDLE OF IT VERY EMOTIONAL SO NURSE HAD TO STOP A COUPLE TIMES.
[2018-01-16 10:18] VITALS: BP 117/67
--- NOTE | 2018-01-16 17:34 | NUR ---
PT. SEEN AND EXAMINED BY DR. GIBSON,PT'S MOTHER PRESENT AND WITH NEW ORDER CARRIED OUT.
[2018-01-16 20:00] VITALS: BP 102/68
[2018-01-16] MEDS: TAMSULOSIN HCL 0.4 MG CAP.SR.24H XX SCH (21:13)
[2018-01-17] MEDS: MODAFINIL 100 MG TABLET GT SCH (05:24)
[2018-01-17 08:00] VITALS: BP 91/54
[2018-01-17] MEDS: LEVETIRACETAM 500 MG/5 ML LIQUID UDC GT SCH ×2 (08:39→21:25)
[2018-01-17] MEDS: DOCUSATE SODIUM 100 MG/10 ML LIQUID UDC GT SCH ×2 (08:39→21:25)
[2018-01-17] MEDS: FAMOTIDINE 20 MG TABLET GT SCH ×2 (08:40→21:27)
[2018-01-17] MEDS: CALMOSEPTINE 113 GM OINTMENT TP SCH ×2 (08:40→21:33)
[2018-01-17] MEDS: NEOMY/BACITRA/POLYMYXIN B OINT UD PACKET TP SCH ×3 (08:40→21:33)
[2018-01-17] MEDS: MIRALAX 17 GM POWD.PACK GT SCH (08:40)
[2018-01-17] MEDS: HYDROGEN PEROXIDE 3% 118 ML BOTTLE TP SCH ×2 (08:40→21:33)
[2018-01-17] MEDS: HEPARIN SODIUM,PORCINE 5,000 UNITS/ML VIAL SQ SCH ×2 (09:14→21:33)
[2018-01-17] MEDS: FIBERSOURCE HN 1000ML LIQUID GT PRN (14:54)
[2018-01-17 21:12] VITALS: BP 98/71
[2018-01-17] MEDS: TAMSULOSIN HCL 0.4 MG CAP.SR.24H XX SCH (21:33)
[2018-01-18] MEDS: MODAFINIL 100 MG TABLET GT SCH (06:21)
[2018-01-18 08:13] VITALS: BP 105/53
[2018-01-18] MEDS: MIRALAX 17 GM POWD.PACK GT SCH (08:17)
[2018-01-18] MEDS: LEVETIRACETAM 500 MG/5 ML LIQUID UDC GT SCH ×2 (08:17→21:39)
[2018-01-18] MEDS: DOCUSATE SODIUM 100 MG/10 ML LIQUID UDC GT SCH ×2 (08:17→21:38)
[2018-01-18] MEDS: CALMOSEPTINE 113 GM OINTMENT TP SCH ×2 (08:18→21:39)
[2018-01-18] MEDS: NEOMY/BACITRA/POLYMYXIN B OINT UD PACKET TP SCH ×3 (08:18→21:39)
[2018-01-18] MEDS: FAMOTIDINE 20 MG TABLET GT SCH ×2 (08:18→21:39)
[2018-01-18] MEDS: HYDROGEN PEROXIDE 3% 118 ML BOTTLE TP SCH ×2 (08:18→21:39)
[2018-01-18] MEDS: HEPARIN SODIUM,PORCINE 5,000 UNITS/ML VIAL SQ SCH ×2 (08:18→21:55)
--- NOTE | 2018-01-18 10:44 | NUR ---
Seen and Examined by Dr Garcia. Notified Dr Garcia of Pt's G/J-tube resistance and difficulty of use since admission. Dr Garcia noted that he will ask GI consult to see pt.
--- NOTE | 2018-01-18 11:52 | NUR ---
Seen and examined by Day Brown NP with no new order.
--- NOTE | 2018-01-18 16:36 | NUR ---
CHRISTIANO scheduled patient's teeth cleaning appointment with Janessa at Dr. Ramos's office, , for 02/15/18.
[2018-01-18] MEDS: FIBERSOURCE HN 1000ML LIQUID GT PRN (17:09)
[2018-01-18 21:12] VITALS: BP 101/64
[2018-01-18] MEDS: TAMSULOSIN HCL 0.4 MG CAP.SR.24H XX SCH (21:39)
--- NOTE | 2018-01-18 23:29 | NUR ---
Patient is afebrile, no signs of any distress noted, mother wants Head of the bed at 30 degrees angle, nurse explained to her that it should be 35-45 degrees but she wants it at 30 degree angle, will continue monitor patient.
[2018-01-19] MEDS: MODAFINIL 100 MG TABLET GT SCH (05:43)
[2018-01-19 08:11] VITALS: BP 101/53
[2018-01-19] MEDS: LEVETIRACETAM 500 MG/5 ML LIQUID UDC GT SCH ×2 (08:22→21:38)
[2018-01-19] MEDS: DOCUSATE SODIUM 100 MG/10 ML LIQUID UDC GT SCH ×2 (08:22→21:38)
[2018-01-19] MEDS: MIRALAX 17 GM POWD.PACK GT SCH (08:23)
[2018-01-19] MEDS: CALMOSEPTINE 113 GM OINTMENT TP SCH ×2 (08:24→21:39)
[2018-01-19] MEDS: FAMOTIDINE 20 MG TABLET GT SCH ×2 (08:24→21:00)
[2018-01-19] MEDS: NEOMY/BACITRA/POLYMYXIN B OINT UD PACKET TP SCH ×3 (08:24→21:40)
[2018-01-19] MEDS: HYDROGEN PEROXIDE 3% 118 ML BOTTLE TP SCH ×2 (08:24→21:39)
[2018-01-19] MEDS: HEPARIN SODIUM,PORCINE 5,000 UNITS/ML VIAL SQ SCH ×2 (08:36→21:38)
--- NOTE | 2018-01-19 09:30 | NUR ---
CONSULTATION BY RITCHIE REAL MONOTYPIST DONE FOR GT CLOGGING WITH NEW ORDERS NOTED.
[2018-01-19] MEDS: FIBERSOURCE HN 1000ML LIQUID GT PRN (16:06)
[2018-01-19 21:34] VITALS: BP 102/73
[2018-01-19] MEDS: TAMSULOSIN HCL 0.4 MG CAP.SR.24H XX SCH (21:40)
[2018-01-20] MEDS: MODAFINIL 100 MG TABLET GT SCH (05:49)
[2018-01-20 08:00] VITALS: BP 95/56
[2018-01-20] MEDS: MIRALAX 17 GM POWD.PACK GT SCH (08:03)
[2018-01-20] MEDS: CALMOSEPTINE 113 GM OINTMENT TP SCH ×2 (08:03→20:24)
[2018-01-20] MEDS: HYDROGEN PEROXIDE 3% 118 ML BOTTLE TP SCH ×2 (08:03→20:24)
[2018-01-20] MEDS: DOCUSATE SODIUM 100 MG/10 ML LIQUID UDC GT SCH ×2 (08:03→20:24)
[2018-01-20] MEDS: HEPARIN SODIUM,PORCINE 5,000 UNITS/ML VIAL SQ SCH ×2 (08:03→20:25)
[2018-01-20] MEDS: FAMOTIDINE 20 MG TABLET GT SCH ×2 (08:03→20:24)
[2018-01-20] MEDS: LEVETIRACETAM 500 MG/5 ML LIQUID UDC GT SCH ×2 (08:03→20:24)
[2018-01-20] MEDS: NEOMY/BACITRA/POLYMYXIN B OINT UD PACKET TP SCH ×3 (08:04→20:24)
--- NOTE | 2018-01-20 09:00 | NUR ---
SEEN AND EXAMINED BY RITCHIE LAU AWARE THE VIOKASE FOR THE GT DECLOGGING IS NOT AVAILABLE YET ,SHE WILL TRY TOMORROW.
[2018-01-20] MEDS ORDERED: PANCRELIPASE GT ONE (14:00)
--- NOTE | 2018-01-20 16:10 | NUR ---
seen and examined by Dr Hector,no new orders.
[2018-01-20 20:00] VITALS: BP 93/60
[2018-01-20] MEDS: TAMSULOSIN HCL 0.4 MG CAP.SR.24H XX SCH (20:24)
[2018-01-21] MEDS: MODAFINIL 100 MG TABLET GT SCH (05:09)
[2018-01-21 08:00] VITALS: BP 98/46
[2018-01-21] MEDS: DOCUSATE SODIUM 100 MG/10 ML LIQUID UDC GT SCH ×2 (08:37→20:55)
[2018-01-21] MEDS: MIRALAX 17 GM POWD.PACK GT SCH (08:37)
[2018-01-21] MEDS: LEVETIRACETAM 500 MG/5 ML LIQUID UDC GT SCH ×2 (08:37→20:55)
[2018-01-21] MEDS: FAMOTIDINE 20 MG TABLET GT SCH ×2 (08:38→20:55)
[2018-01-21] MEDS: HEPARIN SODIUM,PORCINE 5,000 UNITS/ML VIAL SQ SCH ×2 (08:39→20:55)
[2018-01-21] MEDS: NEOMY/BACITRA/POLYMYXIN B OINT UD PACKET TP SCH ×2 (08:39→08:40)
[2018-01-21] MEDS: HYDROGEN PEROXIDE 3% 118 ML BOTTLE TP SCH ×2 (08:39→20:55)
[2018-01-21] MEDS: CALMOSEPTINE 113 GM OINTMENT TP SCH ×2 (08:39→20:55)
[2018-01-21] MEDS ORDERED: ZENPEP 15000 UNIT GT ONE (09:00)
[2018-01-21] MEDS ORDERED: SODIUM BICARBONATE 650 MG TABLET GT ONE (09:00)
[2018-01-21] MEDS ORDERED: MISCELLANEOUS MED GT ONE (09:00)
--- NOTE | 2018-01-21 09:00 | NUR ---
Pancreatic lipase administration through G-tube given by Pema Doyle, Gt/Kenyat clear with slow flow, Mother at bedside and notified of patient's condition.
--- NOTE | 2018-01-21 09:00 | NUR ---
Seen by Day ALMAGUER with no new order.
[2018-01-21] MEDS: FIBERSOURCE HN 1000ML LIQUID GT PRN (15:50)
[2018-01-21 20:00] VITALS: BP 94/62
[2018-01-21] MEDS: TAMSULOSIN HCL 0.4 MG CAP.SR.24H XX SCH (20:55)
[2018-01-22] MEDS: MODAFINIL 100 MG TABLET GT SCH (05:05)
[2018-01-22 08:00] VITALS: BP 100/53
[2018-01-22] MEDS: CALMOSEPTINE 113 GM OINTMENT TP SCH ×2 (08:03→20:53)
[2018-01-22] MEDS: MIRALAX 17 GM POWD.PACK GT SCH (08:03)
[2018-01-22] MEDS: HYDROGEN PEROXIDE 3% 118 ML BOTTLE TP SCH ×2 (08:03→20:53)
[2018-01-22] MEDS: NEOMY/BACITRA/POLYMYXIN B OINT UD PACKET TP SCH (08:03)
[2018-01-22] MEDS: FAMOTIDINE 20 MG TABLET GT SCH ×2 (08:03→20:53)
[2018-01-22] MEDS: LEVETIRACETAM 500 MG/5 ML LIQUID UDC GT SCH ×2 (08:03→20:53)
[2018-01-22] MEDS: DOCUSATE SODIUM 100 MG/10 ML LIQUID UDC GT SCH ×2 (08:03→20:53)
[2018-01-22] MEDS: HEPARIN SODIUM,PORCINE 5,000 UNITS/ML VIAL SQ SCH ×2 (08:19→21:37)
[2018-01-22] MEDS: FIBERSOURCE HN 1000ML LIQUID GT PRN (14:32)
--- NOTE | 2018-01-22 16:23 | NUR ---
Seen by Dr. Villeda, with no new order.
[2018-01-22] MEDS: TAMSULOSIN HCL 0.4 MG CAP.SR.24H XX SCH (20:53)
[2018-01-22 22:00] VITALS: BP 95/64
[2018-01-23] MEDS: MODAFINIL 100 MG TABLET GT SCH (05:25)
[2018-01-23] MEDS: FAMOTIDINE 20 MG TABLET GT SCH ×2 (08:39→20:34)
[2018-01-23] MEDS: CALMOSEPTINE 113 GM OINTMENT TP SCH ×2 (08:39→20:37)
[2018-01-23] MEDS: DOCUSATE SODIUM 100 MG/10 ML LIQUID UDC GT SCH ×2 (08:39→20:34)
[2018-01-23] MEDS: LEVETIRACETAM 500 MG/5 ML LIQUID UDC GT SCH ×2 (08:39→20:34)
[2018-01-23] MEDS: MIRALAX 17 GM POWD.PACK GT SCH (08:39)
[2018-01-23] MEDS: NEOMY/BACITRA/POLYMYXIN B OINT UD PACKET TP SCH (08:40)
[2018-01-23] MEDS: HYDROGEN PEROXIDE 3% 118 ML BOTTLE TP SCH ×2 (08:40→20:37)
[2018-01-23] MEDS: HEPARIN SODIUM,PORCINE 5,000 UNITS/ML VIAL SQ SCH ×2 (08:42→20:35)
[2018-01-23 11:04] VITALS: BP 96/50
[2018-01-23] MEDS: FIBERSOURCE HN 1000ML LIQUID GT PRN (12:19)
[2018-01-23] MEDS: ACETAMINOPHEN 650 MG/20 ML UDC- FOR SA ONLY GT PRN (20:10)
[2018-01-23] MEDS: TAMSULOSIN HCL 0.4 MG CAP.SR.24H XX SCH (20:37)
[2018-01-23 22:00] VITALS: BP 130/81
[2018-01-24] MEDS: MODAFINIL 100 MG TABLET GT SCH (05:15)
[2018-01-24] MEDS: DOCUSATE SODIUM 100 MG/10 ML LIQUID UDC GT SCH ×2 (08:30→21:03)
[2018-01-24] MEDS: LEVETIRACETAM 500 MG/5 ML LIQUID UDC GT SCH ×2 (08:33→21:03)
[2018-01-24] MEDS: CALMOSEPTINE 113 GM OINTMENT TP SCH ×2 (08:34→21:04)
[2018-01-24] MEDS: NEOMY/BACITRA/POLYMYXIN B OINT UD PACKET TP SCH (08:34)
[2018-01-24] MEDS: MIRALAX 17 GM POWD.PACK GT SCH (08:34)
[2018-01-24] MEDS: HEPARIN SODIUM,PORCINE 5,000 UNITS/ML VIAL SQ SCH ×2 (08:34→21:04)
[2018-01-24] MEDS: HYDROGEN PEROXIDE 3% 118 ML BOTTLE TP SCH ×2 (08:34→21:04)
[2018-01-24] MEDS: FAMOTIDINE 20 MG TABLET GT SCH ×2 (08:34→21:03)
[2018-01-24 11:45] VITALS: BP 96/63
[2018-01-24] MEDS: FIBERSOURCE HN 1000ML LIQUID GT PRN (13:54)
[2018-01-24] MEDS: TAMSULOSIN HCL 0.4 MG CAP.SR.24H XX SCH (21:04)
[2018-01-24 21:58] VITALS: BP 100/68
[2018-01-25] MEDS: MODAFINIL 100 MG TABLET GT SCH (05:04)
[2018-01-25] MEDS: DOCUSATE SODIUM 100 MG/10 ML LIQUID UDC GT SCH ×2 (08:06→20:58)
[2018-01-25] MEDS: LEVETIRACETAM 500 MG/5 ML LIQUID UDC GT SCH ×2 (08:09→20:58)
[2018-01-25] MEDS: MIRALAX 17 GM POWD.PACK GT SCH (08:09)
[2018-01-25] MEDS: FAMOTIDINE 20 MG TABLET GT SCH ×2 (08:10→20:59)
[2018-01-25] MEDS: CALMOSEPTINE 113 GM OINTMENT TP SCH ×2 (08:11→21:00)
[2018-01-25] MEDS: HYDROGEN PEROXIDE 3% 118 ML BOTTLE TP SCH ×2 (08:11→21:00)
[2018-01-25] MEDS: HEPARIN SODIUM,PORCINE 5,000 UNITS/ML VIAL SQ SCH ×2 (08:11→21:00)
[2018-01-25] MEDS: NEOMY/BACITRA/POLYMYXIN B OINT UD PACKET TP SCH (08:11)
[2018-01-25 11:22] VITALS: BP 94/57
[2018-01-25] MEDS: FIBERSOURCE HN 1000ML LIQUID GT PRN (14:11)
--- NOTE | 2018-01-25 16:03 | NUR ---
CHRISTIANO informed by Hospital Laboratory Technician Oxana Hernandez that patient's Medi-orestes did not show eligibility for the month of January. CHRISTIANO then met with patient's mother Mia and informed her of above. CHRISTIANO suggested for Mia to go to the [facility] office to inquire about the problem, which Mia agreed. CHRISTIANO provided Mia with the addresses to the local [facility] offices: 1) [address], [place], [id number] [phone] [facility], [id number]
[2018-01-25] MEDS: TAMSULOSIN HCL 0.4 MG CAP.SR.24H XX SCH (21:00)
[2018-01-25 22:00] VITALS: BP 94/58
[2018-01-26] MEDS: MODAFINIL 100 MG TABLET GT SCH (05:29)
[2018-01-26] MEDS: DOCUSATE SODIUM 100 MG/10 ML LIQUID UDC GT SCH ×2 (08:12→20:42)
[2018-01-26] MEDS: FAMOTIDINE 20 MG TABLET GT SCH ×2 (08:13→20:43)
[2018-01-26] MEDS: MIRALAX 17 GM POWD.PACK GT SCH (08:13)
[2018-01-26] MEDS: LEVETIRACETAM 500 MG/5 ML LIQUID UDC GT SCH ×2 (08:13→20:42)
[2018-01-26] MEDS: HYDROGEN PEROXIDE 3% 118 ML BOTTLE TP SCH ×2 (08:14→20:43)
[2018-01-26] MEDS: CALMOSEPTINE 113 GM OINTMENT TP SCH ×2 (08:14→20:43)
[2018-01-26] MEDS: NEOMY/BACITRA/POLYMYXIN B OINT UD PACKET TP SCH (08:15)
[2018-01-26] MEDS: HEPARIN SODIUM,PORCINE 5,000 UNITS/ML VIAL SQ SCH ×2 (08:15→20:45)
--- NOTE | 2018-01-26 10:59 | NUR ---
Patient's mother Mia met with CHRISTIANO this morning and informed her that she went to the [facility] office to inquire about patient's [facility] eligibility status. Mia stated that the worker at the [facility] office had informed her that patient hadn't completed her annual redetermination form, and they had provided Mia with form MC 216 to complete. SW assisted patient's mother with completing the form, and SW made a copy of the completed form and filed it in patient's file in SW office. Patient's mother Mia took the completed form and stated that she would go back to the [facility] office today in order to turn it into them. SW agreed. SW to follow-up with Mia, as needed.
[2018-01-26 11:20] VITALS: BP 111/68
[2018-01-26] MEDS: FIBERSOURCE HN 1000ML LIQUID GT PRN (14:08)
--- NOTE | 2018-01-26 14:40 | NUR ---
2:15pm: Patient's mother Mia met with CHRISTIANO and informed her that she turned in the redetermination form to [employer] today and was informed that patient's [facility] should be re-instated within 1 week. CHRISTIANO informed personnel clerks supervisor Oxana and subacute rn case management Megan.
--- NOTE | 2018-01-26 15:08 | NUR ---
CHRISTIANO notified patient's mother Mia that the next IDT meeting for the patient is scheduled for 02/02/18 at 11am.
--- NOTE | 2018-01-26 17:10 | NUR ---
NEW ORDERS FOR PT SCREEN FOR OUT OF BED TO [facility] SALCEDO, JENNI PT AWARE,PT'S MOTHER AWARE AND AGREED WITH THE NEW ORDERS.
[2018-01-26 20:00] VITALS: BP 97/68
[2018-01-26] MEDS: TAMSULOSIN HCL 0.4 MG CAP.SR.24H XX SCH (20:43)
[2018-01-27] MEDS: MODAFINIL 100 MG TABLET GT SCH (05:46)
[2018-01-27 07:51] VITALS: BP 98/64
[2018-01-27] MEDS: HYDROGEN PEROXIDE 3% 118 ML BOTTLE TP SCH ×2 (08:57→20:45)
[2018-01-27] MEDS: DOCUSATE SODIUM 100 MG/10 ML LIQUID UDC GT SCH ×2 (08:57→20:42)
[2018-01-27] MEDS: CALMOSEPTINE 113 GM OINTMENT TP SCH ×2 (08:57→20:45)
[2018-01-27] MEDS: MIRALAX 17 GM POWD.PACK GT SCH (08:57)
[2018-01-27] MEDS: LEVETIRACETAM 500 MG/5 ML LIQUID UDC GT SCH ×2 (08:57→20:42)
[2018-01-27] MEDS: NEOMY/BACITRA/POLYMYXIN B OINT UD PACKET TP SCH (08:57)
[2018-01-27] MEDS: FAMOTIDINE 20 MG TABLET GT SCH ×2 (08:57→20:43)
[2018-01-27] MEDS: HEPARIN SODIUM,PORCINE 5,000 UNITS/ML VIAL SQ SCH ×2 (08:57→20:46)
--- NOTE | 2018-01-27 18:35 | NUR ---
SEEN AND EXAMINED BY DR ELAM,WITH NO NEW ORDERS NOTED.JENNI PT EVALUATED THE PT,SHE WILL BE BACK ON THURSDAY,SHE WANTS TO SEE FIRST IF THE PT TOLERATED TO SIT UPRIGHT IN BED .SHE SPOKE TO MIGUEL WIGGINS'S MOTHER AND SHE UNDERSTAND AND AGREED.
[2018-01-27 20:00] VITALS: BP 96/63
[2018-01-27] MEDS: TAMSULOSIN HCL 0.4 MG CAP.SR.24H XX SCH (20:45)
[2018-01-28] MEDS: MODAFINIL 100 MG TABLET GT SCH (06:00)
[2018-01-28 08:00] VITALS: BP 102/66
[2018-01-28] MEDS: DOCUSATE SODIUM 100 MG/10 ML LIQUID UDC GT SCH ×2 (08:00→20:30)
[2018-01-28] MEDS: LEVETIRACETAM 500 MG/5 ML LIQUID UDC GT SCH ×2 (08:00→20:30)
[2018-01-28] MEDS: FAMOTIDINE 20 MG TABLET GT SCH ×2 (08:02→20:31)
[2018-01-28] MEDS: HYDROGEN PEROXIDE 3% 118 ML BOTTLE TP SCH ×2 (08:02→20:33)
[2018-01-28] MEDS: NEOMY/BACITRA/POLYMYXIN B OINT UD PACKET TP SCH (08:02)
[2018-01-28] MEDS: CALMOSEPTINE 113 GM OINTMENT TP SCH ×2 (08:02→20:33)
[2018-01-28] MEDS: MIRALAX 17 GM POWD.PACK GT SCH (08:02)
[2018-01-28] MEDS: HEPARIN SODIUM,PORCINE 5,000 UNITS/ML VIAL SQ SCH ×2 (08:05→21:35)
[2018-01-28] MEDS: FIBERSOURCE HN 1000ML LIQUID GT PRN (14:11)
[2018-01-28 20:00] VITALS: BP 97/57
[2018-01-28] MEDS: TAMSULOSIN HCL 0.4 MG CAP.SR.24H XX SCH (20:33)
[2018-01-29] MEDS: MODAFINIL 100 MG TABLET GT SCH (05:40)
--- NOTE | 2018-01-29 08:00 | NUR ---
PATIENT RECD. IN BED, AFEBRILE, NO S/S OF RESP. DISTRESS, NO DISCOMFORT NOTED AT THIS TIME. ABD. SOFT/NON-DISTENDED, SKIN FRAZIER, DRY & INTACT. GT SITE CLEAN/DRY/NO REDNESS/NO LEAK NOTED. TRACH TUBE SECURED/PATENT AT MIDLINE.
[2018-01-29 08:06] VITALS: BP 95/63
[2018-01-29] MEDS: HEPARIN SODIUM,PORCINE 5,000 UNITS/ML VIAL SQ SCH ×2 (09:03→21:00)
[2018-01-29] MEDS: MIRALAX 17 GM POWD.PACK GT SCH (09:20)
[2018-01-29] MEDS: DOCUSATE SODIUM 100 MG/10 ML LIQUID UDC GT SCH ×2 (09:20→21:37)
[2018-01-29] MEDS: LEVETIRACETAM 500 MG/5 ML LIQUID UDC GT SCH ×2 (09:20→21:37)
[2018-01-29] MEDS: CALMOSEPTINE 113 GM OINTMENT TP SCH ×2 (09:21→21:37)
[2018-01-29] MEDS: FIBERSOURCE HN 1000ML LIQUID GT PRN (09:22)
[2018-01-29] MEDS: FAMOTIDINE 20 MG TABLET GT SCH ×2 (09:22→21:37)
[2018-01-29] MEDS: HYDROGEN PEROXIDE 3% 118 ML BOTTLE TP SCH ×2 (09:22→21:37)
[2018-01-29] MEDS: NEOMY/BACITRA/POLYMYXIN B OINT UD PACKET TP SCH (09:22)
--- NOTE | 2018-01-29 13:02 | NUR ---
Patient had a PT evaluation for out of bed into a Tracee chair. Pt tolerated sitting in Tracee chair well.
[2018-01-29 20:00] VITALS: BP 92/55
[2018-01-29] MEDS: TAMSULOSIN HCL 0.4 MG CAP.SR.24H XX SCH (21:37)
[2018-01-30] MEDS: MODAFINIL 100 MG TABLET GT SCH (05:27)
[2018-01-30] MEDS: HEPARIN SODIUM,PORCINE 5,000 UNITS/ML VIAL SQ SCH ×2 (08:32→21:00)
[2018-01-30] MEDS: DOCUSATE SODIUM 100 MG/10 ML LIQUID UDC GT SCH ×2 (08:39→21:00)
[2018-01-30] MEDS: HYDROGEN PEROXIDE 3% 118 ML BOTTLE TP SCH ×2 (08:40→21:00)
[2018-01-30] MEDS: MIRALAX 17 GM POWD.PACK GT SCH (08:40)
[2018-01-30] MEDS: FAMOTIDINE 20 MG TABLET GT SCH ×2 (08:40→21:00)
[2018-01-30] MEDS: LEVETIRACETAM 500 MG/5 ML LIQUID UDC GT SCH ×2 (08:40→21:00)
[2018-01-30] MEDS: CALMOSEPTINE 113 GM OINTMENT TP SCH ×2 (08:40→21:00)
[2018-01-30] MEDS: FIBERSOURCE HN 1000ML LIQUID GT PRN (08:40)
[2018-01-30 11:25] VITALS: BP 100/62
[2018-01-30 20:00] VITALS: BP 100/67
[2018-01-30] MEDS: TAMSULOSIN HCL 0.4 MG CAP.SR.24H XX SCH (21:00)
[2018-01-31] MEDS: MODAFINIL 100 MG TABLET GT SCH (06:50)
[2018-01-31 08:06] VITALS: BP 114/74
[2018-01-31] MEDS: MIRALAX 17 GM POWD.PACK GT SCH (08:28)
[2018-01-31] MEDS: DOCUSATE SODIUM 100 MG/10 ML LIQUID UDC GT SCH ×2 (08:28→20:35)
[2018-01-31] MEDS: LEVETIRACETAM 500 MG/5 ML LIQUID UDC GT SCH ×2 (08:28→20:35)
[2018-01-31] MEDS: FAMOTIDINE 20 MG TABLET GT SCH ×2 (08:29→20:35)
[2018-01-31] MEDS: CALMOSEPTINE 113 GM OINTMENT TP SCH ×2 (08:30→20:35)
[2018-01-31] MEDS: HYDROGEN PEROXIDE 3% 118 ML BOTTLE TP SCH ×2 (08:30→20:35)
[2018-01-31] MEDS: HEPARIN SODIUM,PORCINE 5,000 UNITS/ML VIAL SQ SCH ×2 (08:33→21:13)
[2018-01-31] MEDS: TAMSULOSIN HCL 0.4 MG CAP.SR.24H XX SCH (20:35)
[2018-01-31 21:29] VITALS: BP 98/63
[2018-02-01] MEDS: MODAFINIL 100 MG TABLET GT SCH (05:00)
[2018-02-01 08:09] VITALS: BP 106/69
[2018-02-01] MEDS: LEVETIRACETAM 500 MG/5 ML LIQUID UDC GT SCH ×2 (08:39→21:08)
[2018-02-01] MEDS: MIRALAX 17 GM POWD.PACK GT SCH (08:39)
[2018-02-01] MEDS: DOCUSATE SODIUM 100 MG/10 ML LIQUID UDC GT SCH ×2 (08:39→21:08)
[2018-02-01] MEDS: FAMOTIDINE 20 MG TABLET GT SCH ×2 (08:39→21:08)
[2018-02-01] MEDS: CALMOSEPTINE 113 GM OINTMENT TP SCH ×2 (08:40→21:08)
[2018-02-01] MEDS: HEPARIN SODIUM,PORCINE 5,000 UNITS/ML VIAL SQ SCH ×2 (08:40→21:57)
[2018-02-01] MEDS: HYDROGEN PEROXIDE 3% 118 ML BOTTLE TP SCH ×2 (08:40→21:08)
[2018-02-01] MEDS: TAMSULOSIN HCL 0.4 MG CAP.SR.24H XX SCH (21:08)
[2018-02-01 22:02] VITALS: BP 93/61
[2018-02-02] MEDS: MODAFINIL 100 MG TABLET GT SCH (06:52)
[2018-02-02 08:08] VITALS: BP 98/58
[2018-02-02] MEDS: DOCUSATE SODIUM 100 MG/10 ML LIQUID UDC GT SCH ×2 (08:49→21:03)
[2018-02-02] MEDS: HEPARIN SODIUM,PORCINE 5,000 UNITS/ML VIAL SQ SCH ×2 (08:49→21:08)
[2018-02-02] MEDS: LEVETIRACETAM 500 MG/5 ML LIQUID UDC GT SCH ×2 (08:49→21:03)
[2018-02-02] MEDS: CALMOSEPTINE 113 GM OINTMENT TP SCH ×2 (08:49→21:06)
[2018-02-02] MEDS: HYDROGEN PEROXIDE 3% 118 ML BOTTLE TP SCH ×2 (08:49→21:06)
[2018-02-02] MEDS: MIRALAX 17 GM POWD.PACK GT SCH (08:49)
[2018-02-02] MEDS: FAMOTIDINE 20 MG TABLET GT SCH ×2 (08:49→21:04)
--- NOTE | 2018-02-02 12:30 | NUR ---
new orders noted for pt to be out of bed with romario lift as tolerated,with mom supervision,orders carried out,pt's mom fallon aware.
--- NOTE | 2018-02-02 15:36 | NUR ---
Pharmacy Update from Today's 02/02/18 IDT Meeting: VS: Temp 98.2 BP 94/57 HR 78 LABS: (from 01/04/18, no new labs) Wbc 7.6H/H 11.6/34.9Plt 250 Na 136K 4.0Cl 101CO2 26BUN/SCr 9/0.6 BS 138Ca 8.9Phos 4.5Mg 2.2 MEDICATION USE REVIEWED: > Pt is on Keppra 1000mg q12hr since admission 12/29/17. Calculated CrCl 145.3 ml/min, renal fxn ok for the current dose. No seizure activity reported. > Pt is on modafinil 50mg daily, initiated from [place] before transfer (Case reports of use post-stroke), continued for possible improved post-stroke fatigue and neurologic responsiveness per pt family reports of improved movement in limbs, response to verbal commands. Continued trial per family. > Pt on Heparin 5000units q12hr for DVT prophylaxis, last plt 250, no bleeding reported since admit > Pt on famotidine 20mg q12hr for GI prophylaxis, renal fxn ok for dose. >PRN MED USAGE: (December) Tylenol x 4 bisacodyl x 1 [place] x 0 MOM x 0 Fleet enema (if MOM ineffective) x 0 NEW ORDERS NOTED > 01/16 delogging of jtube via pancrealipase + sodium bicarb tab slurry mix - procedure completed per GI Patient was reviewed and discussed in depth, pt continues to be rounded biweekly d/t new admit. No medication issues or changes at this time, will continue to monitor.
--- NOTE | 2018-02-02 16:29 | NUR ---
INTERDISCIPLINARY PLAN OF CARE CONFERENCE was held today. Patient's mother was invited to the meeting, but she was unable to attend. Dr. Hector and the Interdisciplinary Team reviewed the current plan of care in detail. RN provided updates on the patient's medical condition. See RN IDT conference notes. No major changes reported at this time. See also all other disciplines IDT notes and physician's progress notes for additional details.
[2018-02-02] MEDS: TAMSULOSIN HCL 0.4 MG CAP.SR.24H XX SCH (21:06)
[2018-02-02 21:38] VITALS: BP 102/64
[2018-02-03] MEDS: MODAFINIL 100 MG TABLET GT SCH (05:49)
[2018-02-03 08:00] VITALS: BP 102/53
[2018-02-03] MEDS: DOCUSATE SODIUM 100 MG/10 ML LIQUID UDC GT SCH ×2 (08:16→21:19)
[2018-02-03] MEDS: LEVETIRACETAM 500 MG/5 ML LIQUID UDC GT SCH ×2 (08:18→21:19)
[2018-02-03] MEDS: MIRALAX 17 GM POWD.PACK GT SCH (08:18)
[2018-02-03] MEDS: FAMOTIDINE 20 MG TABLET GT SCH ×2 (08:18→21:19)
[2018-02-03] MEDS: CALMOSEPTINE 113 GM OINTMENT TP SCH ×2 (08:19→21:20)
[2018-02-03] MEDS: HYDROGEN PEROXIDE 3% 118 ML BOTTLE TP SCH ×2 (08:19→21:20)
[2018-02-03] MEDS: FIBERSOURCE HN 1000ML LIQUID GT PRN (08:19)
[2018-02-03] MEDS: HEPARIN SODIUM,PORCINE 5,000 UNITS/ML VIAL SQ SCH ×2 (08:49→21:34)
--- NOTE | 2018-02-03 12:00 | NUR ---
SEEN AND EXAMINED BY DR ELAM,NO NEW ORDERS.
--- NOTE | 2018-02-03 12:14 | NUR ---
Patient informed patient's mother Mia that the next IDT meeting for the patient is scheduled for 02/09/18 at 11am.
--- NOTE | 2018-02-03 12:15 | NUR ---
CHRISTIANO informed by water maintenance supervisor Oxana that patient's [employer] is now eligible. HIEU Guzman also informed.
[2018-02-03 21:01] VITALS: BP 93/59
[2018-02-03] MEDS: TAMSULOSIN HCL 0.4 MG CAP.SR.24H XX SCH (21:20)
[2018-02-04] MEDS: MODAFINIL 100 MG TABLET GT SCH (05:28)
[2018-02-04] MEDS: HYDROGEN PEROXIDE 3% 118 ML BOTTLE TP SCH ×2 (08:49→20:56)
[2018-02-04] MEDS: CALMOSEPTINE 113 GM OINTMENT TP SCH ×2 (08:49→20:56)
[2018-02-04] MEDS: LEVETIRACETAM 500 MG/5 ML LIQUID UDC GT SCH ×2 (08:49→20:56)
[2018-02-04] MEDS: FIBERSOURCE HN 1000ML LIQUID GT PRN (08:49)
[2018-02-04] MEDS: MIRALAX 17 GM POWD.PACK GT SCH (08:49)
[2018-02-04] MEDS: FAMOTIDINE 20 MG TABLET GT SCH ×2 (08:49→20:56)
[2018-02-04] MEDS: DOCUSATE SODIUM 100 MG/10 ML LIQUID UDC GT SCH ×2 (08:49→20:49)
[2018-02-04] MEDS: HEPARIN SODIUM,PORCINE 5,000 UNITS/ML VIAL SQ SCH ×2 (09:00→20:57)
--- NOTE | 2018-02-04 11:09 | NUR ---
Patient's mother Mia came to CHRISTIANO's office this morning because she wanted to discuss the ongoing problems she was having with patient's , Terence. Mia discussed receiving several more "mean" text messages from patient's , via her grandson. (previous incidents documented by CHRISTIANO, dated 01/04 and 01/05). Text messages were in Bahamian, and therefore CHRISTIANO asked for TRAFFIC WORKFORCE REPRESENTATIVE Trupti to translate the text messages, which included legal threats and insulting statements. Mia discussed her thoughts and feelings related to the text messages, and became very tearful. CHRISTIANO provided an opportunity for Mia to express herself, and then provided education on some of different legal resources that were available to her that can provide assistance and guidance with some of the psychosocial problems she had been experiencing. Mia stated that she would like to report the patient's 's actions to the police, and since patient is in fpc, CHRISTIANO provided Mia with the contact information to the [facility]'s department, [facility] [place] [address], . CHRISTIANO then revisited the discussion that CHRISTIANO had had with Mia last month regarding conservatorship. Mia then called her son, Santiago, and CHRISTIANO also spoke with him via telephone, discussing the text messages, legal rights and resources, Mia's request for how to report these incidents to the police, and conservatorship. Santiago was receptive and in agreement with Mia, and expressed appreciation to CHRISTIANO for the resources that she would be providing. CHRISTIANO explained the process of conservatorship to Santiago, and stated that this information would be provided to Mia, along with the name of an agency that provides assistance to low-income individuals with the conservatorship process. CHRISTIANO also informed Santiago that she will provide the address/phone number to the local [facility]'s office to his mother Mia. Santiago agreed and thanked CHRISTIANO. CHRISTIANO passed the phone to Mia, who then ended her conversation with Santiago. Mia then suddenly began crying uncontrollably. CHRISTIANO allowed time for Mia to cry, and to express her thoughts and feelings. CHRISTIANO validated Mia's feelings, providing supportive counseling and education on coping with loss and change. Mia was receptive to CHRISTIANO's discussion. CHRISTIANO then generated a discussion about the importance of self-care for family members/caregivers of patients who are chronically ill. CHRISTIANO then assisted Mia with exploring different activities that she enjoys. Mia participated in the exploration discussion, and came to the conclusion that she was going to go to the hair salon and treat herself to a new hair cut. CHRISTIANO commended Mia on her decision. Mia thanked CHRISTIANO for her support. SW to continue to monitor Mia's psychosocial stressors and will provide support and education as needed, along with encouragement for ongoing self-care activities.
--- NOTE | 2018-02-04 11:30 | NUR ---
Seen by Day ALMAGUER with no new order.
[2018-02-04 11:33] VITALS: BP 98/54
--- NOTE | 2018-02-04 15:36 | NUR ---
CHRISTIANO met with patient's mother Mia, as a follow-up to this mornings meeting. Mia expressed feeling more relaxed after taking the time to do a self-care activity, and thanked CHRISTIANO for her support. CHRISTIANO then provided information on conservatorship, as CHRISTIANO stated she would. CHRISTIANO provided a fact sheet on conservatorship, contact information to [employer] [facility] [employer], , who provide assistance to people who want to apply for conservatorship, along with their website, www.[employer], with instructions on how to navigate the website in order to get to the section on conservatorship. Mia thanked CHRISTIANO for this information. A copy of the information provided was filed in patient's file in CHRISTIANO's office.
[2018-02-04 20:00] VITALS: BP_SYST 94; BP_SYST 95; BP_DIAS 55; BP_DIAS 60
[2018-02-04] MEDS: TAMSULOSIN HCL 0.4 MG CAP.SR.24H XX SCH (20:56)
[2018-02-05] MEDS: MODAFINIL 100 MG TABLET GT SCH (05:38)
--- NOTE | 2018-02-05 08:00 | NUR ---
PATIENT RECD. IN BED, AFEBRILE, NO S/S OF RESP. DISTRESS, NO DISCOMFORT NOTED AT THIS TIME. ABD. SOFT/NON-DISTENDED, SKIN FRAZIER, DRY & INTACT. JGT SITE CLEAN/DRY/NO REDNESS/NO LEAK NOTED. TRACH TUBE SECURED/PATENT AT MIDLINE.
[2018-02-05] MEDS: MIRALAX 17 GM POWD.PACK GT SCH (08:43)
[2018-02-05] MEDS: DOCUSATE SODIUM 100 MG/10 ML LIQUID UDC GT SCH ×2 (08:43→21:36)
[2018-02-05] MEDS: LEVETIRACETAM 500 MG/5 ML LIQUID UDC GT SCH ×2 (08:43→21:36)
[2018-02-05] MEDS: FAMOTIDINE 20 MG TABLET GT SCH ×2 (08:43→21:36)
[2018-02-05] MEDS: FIBERSOURCE HN 1000ML LIQUID GT PRN (08:44)
[2018-02-05] MEDS: HYDROGEN PEROXIDE 3% 118 ML BOTTLE TP SCH ×2 (08:44→21:36)
[2018-02-05] MEDS: CALMOSEPTINE 113 GM OINTMENT TP SCH ×2 (08:44→21:36)
[2018-02-05] MEDS: HEPARIN SODIUM,PORCINE 5,000 UNITS/ML VIAL SQ SCH ×2 (08:47→21:37)
[2018-02-05 11:58] VITALS: BP 97/58
[2018-02-05 20:50] VITALS: BP 93/58
[2018-02-05] MEDS: TAMSULOSIN HCL 0.4 MG CAP.SR.24H XX SCH (21:36)
[2018-02-06] MEDS: MODAFINIL 100 MG TABLET GT SCH (06:12)
[2018-02-06] MEDS: FIBERSOURCE HN 1000ML LIQUID GT PRN (06:58)
[2018-02-06 08:00] VITALS: BP 106/68
[2018-02-06] MEDS: MIRALAX 17 GM POWD.PACK GT SCH (08:21)
[2018-02-06] MEDS: FAMOTIDINE 20 MG TABLET GT SCH ×2 (08:21→20:42)
[2018-02-06] MEDS: LEVETIRACETAM 500 MG/5 ML LIQUID UDC GT SCH ×2 (08:21→20:42)
[2018-02-06] MEDS: DOCUSATE SODIUM 100 MG/10 ML LIQUID UDC GT SCH ×2 (08:21→20:42)
[2018-02-06] MEDS: CALMOSEPTINE 113 GM OINTMENT TP SCH ×2 (08:22→20:43)
[2018-02-06] MEDS: HYDROGEN PEROXIDE 3% 118 ML BOTTLE TP SCH ×2 (08:22→20:43)
[2018-02-06] MEDS: HEPARIN SODIUM,PORCINE 5,000 UNITS/ML VIAL SQ SCH ×2 (08:27→20:42)
[2018-02-06] MEDS: TAMSULOSIN HCL 0.4 MG CAP.SR.24H XX SCH (20:43)
[2018-02-06 20:50] VITALS: BP 93/57
[2018-02-07] MEDS: MODAFINIL 100 MG TABLET GT SCH (05:46)
[2018-02-07] MEDS: FIBERSOURCE HN 1000ML LIQUID GT PRN (05:50)
[2018-02-07 08:00] VITALS: BP 103/66
[2018-02-07] MEDS: DOCUSATE SODIUM 100 MG/10 ML LIQUID UDC GT SCH ×2 (08:54→21:48)
[2018-02-07] MEDS: MIRALAX 17 GM POWD.PACK GT SCH (08:54)
[2018-02-07] MEDS: HYDROGEN PEROXIDE 3% 118 ML BOTTLE TP SCH ×2 (08:54→21:51)
[2018-02-07] MEDS: CALMOSEPTINE 113 GM OINTMENT TP SCH ×2 (08:54→21:50)
[2018-02-07] MEDS: FAMOTIDINE 20 MG TABLET GT SCH ×2 (08:54→21:50)
[2018-02-07] MEDS: LEVETIRACETAM 500 MG/5 ML LIQUID UDC GT SCH ×2 (08:54→21:49)
[2018-02-07] MEDS: HEPARIN SODIUM,PORCINE 5,000 UNITS/ML VIAL SQ SCH ×2 (09:07→21:00)
[2018-02-07 20:57] VITALS: BP 112/65
[2018-02-07] MEDS: TAMSULOSIN HCL 0.4 MG CAP.SR.24H XX SCH (21:51)
[2018-02-08] MEDS: MODAFINIL 100 MG TABLET GT SCH (06:20)
[2018-02-08 08:00] VITALS: BP 104/65
[2018-02-08] MEDS: FAMOTIDINE 20 MG TABLET GT SCH ×2 (09:14→21:36)
[2018-02-08] MEDS: LEVETIRACETAM 500 MG/5 ML LIQUID UDC GT SCH ×2 (09:14→21:35)
[2018-02-08] MEDS: MIRALAX 17 GM POWD.PACK GT SCH (09:14)
[2018-02-08] MEDS: DOCUSATE SODIUM 100 MG/10 ML LIQUID UDC GT SCH ×2 (09:14→21:35)
[2018-02-08] MEDS: HYDROGEN PEROXIDE 3% 118 ML BOTTLE TP SCH ×2 (09:15→21:36)
[2018-02-08] MEDS: HEPARIN SODIUM,PORCINE 5,000 UNITS/ML VIAL SQ SCH ×2 (09:15→21:35)
[2018-02-08] MEDS: CALMOSEPTINE 113 GM OINTMENT TP SCH ×2 (09:15→21:36)
--- NOTE | 2018-02-08 09:30 | NUR ---
Seen by Dr. Garcia with no new order.
--- NOTE | 2018-02-08 12:28 | NUR ---
Seen by Day ALMAGUER, with no new order.
[2018-02-08] MEDS: TAMSULOSIN HCL 0.4 MG CAP.SR.24H XX SCH (21:36)
[2018-02-08 22:00] VITALS: BP 94/61
[2018-02-09] MEDS: FIBERSOURCE HN 1000ML LIQUID GT PRN (01:49)
[2018-02-09] MEDS: MODAFINIL 100 MG TABLET GT SCH (05:51)
[2018-02-09 08:08] VITALS: BP 91/58
[2018-02-09] MEDS: LEVETIRACETAM 500 MG/5 ML LIQUID UDC GT SCH ×2 (08:17→21:21)
[2018-02-09] MEDS: MIRALAX 17 GM POWD.PACK GT SCH (08:17)
[2018-02-09] MEDS: DOCUSATE SODIUM 100 MG/10 ML LIQUID UDC GT SCH ×2 (08:17→21:21)
[2018-02-09] MEDS: FAMOTIDINE 20 MG TABLET GT SCH ×2 (08:18→21:22)
[2018-02-09] MEDS: CALMOSEPTINE 113 GM OINTMENT TP SCH ×2 (08:18→21:22)
[2018-02-09] MEDS: HEPARIN SODIUM,PORCINE 5,000 UNITS/ML VIAL SQ SCH ×2 (08:18→21:20)
[2018-02-09] MEDS: HYDROGEN PEROXIDE 3% 118 ML BOTTLE TP SCH ×2 (08:19→21:23)
--- NOTE | 2018-02-09 14:00 | NUR ---
Seen and examined by Dr Hector with no new orders noted.
--- NOTE | 2018-02-09 14:21 | NUR ---
INTERDISCIPLINARY PLAN OF CARE CONFERENCE was held today. Patient's mother and father were present at the meeting. Dr. Hector and the Interdisciplinary Team reviewed the current plan of care in detail. RN provided updates on patient's medical condition. See RN IDT conference notes. No major changes were reported. See also all other disciplines IDT notes and physician's progress notes for additional details. Parent's questions were addressed by Dr. Hector and the IDT team, and parents expressed being content with the current plan of care.
--- NOTE | 2018-02-09 15:37 | NUR ---
Pharmacy Update from Today's 02/09/18 IDT Meeting: VS: Temp 98.8 BP 94/61 HR 82 LABS: (from 01/04/18, no new labs) Wbc 7.6H/H 11.6/34.9Plt 250 Na 136K 4.0Cl 101CO2 26BUN/SCr 9/0.6 BS 138Ca 8.9Phos 4.5Mg 2.2 MEDICATION USE REVIEWED: > Pt is on Keppra 1000mg q12hr since admission 12/29/17. Calculated CrCl 145.3 ml/min, renal fxn ok for the current dose. No seizure activity reported. > Pt is on modafinil 50mg daily, initiated from [place] before transfer (Case reports of use post-stroke), continued for possible improved post-stroke fatigue and neurologic responsiveness per pt family reports of improved movement in limbs, response to verbal commands. Continued trial per family. > Pt on Heparin 5000units q12hr for DVT prophylaxis, last plt 250, no bleeding reported since admit > Pt on famotidine 20mg q12hr for GI prophylaxis, renal fxn ok for dose. >PRN MED USAGE: (December) Tylenol x 4 bisacodyl x 1 [place] x 0 MOM x 0 Fleet enema (if MOM ineffective) x 0 NEW ORDERS NOTED > NA since last IDT Patient was reviewed and discussed in depth, family in attendance. RNs report continued resistance in J tube despite de-clogging per GI late December. Discussed possible cause as flomax, though (FAWAD) notified, and last bladder scan for residual was negative, MD disagreed to d/c flomax. Rx recommend for possible re-assessment for d/c or if absolutely needed, alternative may be doxazosin - although not uroselective, may be crushed for jtube if IR formulation. Also recommend hold parameters for low BP as pt BP does run lower and non-uroselective option may affect BP as well. (OLIVIA) ordered GI re-eval as well d/t continued clogging and assessment of flomax. Will follow
[2018-02-09 20:00] VITALS: BP 92/63
[2018-02-09] MEDS: TAMSULOSIN HCL 0.4 MG CAP.SR.24H XX SCH (21:23)
[2018-02-10] MEDS: MODAFINIL 100 MG TABLET GT SCH (05:53)
[2018-02-10 08:11] VITALS: BP 117/77
[2018-02-10] MEDS: MIRALAX 17 GM POWD.PACK GT SCH (08:23)
[2018-02-10] MEDS: DOCUSATE SODIUM 100 MG/10 ML LIQUID UDC GT SCH ×2 (08:23→21:31)
[2018-02-10] MEDS: LEVETIRACETAM 500 MG/5 ML LIQUID UDC GT SCH ×2 (08:23→21:32)
[2018-02-10] MEDS: HEPARIN SODIUM,PORCINE 5,000 UNITS/ML VIAL SQ SCH ×2 (08:23→21:34)
[2018-02-10] MEDS: HYDROGEN PEROXIDE 3% 118 ML BOTTLE TP SCH ×2 (08:24→21:34)
[2018-02-10] MEDS: FAMOTIDINE 20 MG TABLET GT SCH ×2 (08:24→21:32)
[2018-02-10] MEDS: CALMOSEPTINE 113 GM OINTMENT TP SCH ×2 (08:24→21:34)
--- NOTE | 2018-02-10 17:56 | NUR ---
SEEN AND EXAMINED BY EVY RITCHIE,AWARE OF THE FAMILY REQUEST TO CHANGE THE GT,SHE STATED ,THEY WILL DO IT NEXT WEEK.SHE SPOKE TO THE FAMILY.
[2018-02-10] MEDS: TAMSULOSIN HCL 0.4 MG CAP.SR.24H XX SCH (21:34)
[2018-02-10 22:00] VITALS: BP 100/67
[2018-02-10] MEDS: FIBERSOURCE HN 1000ML LIQUID GT PRN (22:00)
[2018-02-11] MEDS: MODAFINIL 100 MG TABLET GT SCH (05:10)
[2018-02-11] MEDS: MIRALAX 17 GM POWD.PACK GT SCH (08:52)
[2018-02-11] MEDS: CALMOSEPTINE 113 GM OINTMENT TP SCH ×2 (08:52→21:25)
[2018-02-11] MEDS: LEVETIRACETAM 500 MG/5 ML LIQUID UDC GT SCH ×2 (08:52→21:23)
[2018-02-11] MEDS: DOCUSATE SODIUM 100 MG/10 ML LIQUID UDC GT SCH ×2 (08:52→21:23)
[2018-02-11] MEDS: HYDROGEN PEROXIDE 3% 118 ML BOTTLE TP SCH ×2 (08:52→21:25)
[2018-02-11] MEDS: FAMOTIDINE 20 MG TABLET GT SCH ×2 (08:52→21:25)
[2018-02-11] MEDS: HEPARIN SODIUM,PORCINE 5,000 UNITS/ML VIAL SQ SCH ×2 (09:33→21:50)
[2018-02-11 11:34] VITALS: BP 102/63
--- NOTE | 2018-02-11 13:13 | NUR ---
Per patient's mother Mia's request, a condition letter was provided to Mia, signed by Day Brown. Copy of the letter filed in patient's file in SW office.
--- NOTE | 2018-02-11 13:42 | NUR ---
CHRISTIANO received a called from Tom at Dr. Winston's office [phone], wanting to reschedule patient's annual teeth cleaning which was scheduled for 02/15/18. Patient's teeth cleaning has now been rescheduled for 03/01/2018.
[2018-02-11 20:50] VITALS: BP 95/62
[2018-02-11] MEDS: TAMSULOSIN HCL 0.4 MG CAP.SR.24H XX SCH (21:25)
[2018-02-12] MEDS: MODAFINIL 100 MG TABLET GT SCH (05:12)
[2018-02-12] MEDS: FAMOTIDINE 20 MG TABLET GT SCH ×2 (08:22→21:35)
[2018-02-12] MEDS: LEVETIRACETAM 500 MG/5 ML LIQUID UDC GT SCH ×2 (08:22→21:34)
[2018-02-12] MEDS: CALMOSEPTINE 113 GM OINTMENT TP SCH ×2 (08:22→21:35)
[2018-02-12] MEDS: HYDROGEN PEROXIDE 3% 118 ML BOTTLE TP SCH ×2 (08:22→21:35)
[2018-02-12] MEDS: DOCUSATE SODIUM 100 MG/10 ML LIQUID UDC GT SCH ×2 (08:22→21:34)
[2018-02-12] MEDS: MIRALAX 17 GM POWD.PACK GT SCH (08:22)
[2018-02-12] MEDS: HEPARIN SODIUM,PORCINE 5,000 UNITS/ML VIAL SQ SCH ×2 (09:00→21:58)
[2018-02-12 13:03] VITALS: BP 100/61
--- NOTE | 2018-02-12 15:41 | NUR ---
Patient's mother Mia notified by CHRISTIANO that patient's teeth cleaning appointment has been changed from 02/15 to 03/01. Mia stated that she was fine with the changed date.
--- NOTE | 2018-02-12 15:43 | NUR ---
Patient's mother Mia and RN Gaby came to office because Mia wanted to discuss visitation restrictions. Mia provided with a list of individuals who ARE ALLOWED to visit patient without restrictions, and then stated that all other visitors would need permission from her or her son in order to visit. Mia stated that she does not want anyone besides the "allowed" visitors to visit the patient when she or her son were not present. stated that she can provide a visitors list and instructions to security, and Mia agreed. typed out the following instructions and provided a copy to the security desk in the hospital lobby, emailed a copy to senior cyber security analyst Jovani Ag, and filed a copy in patient's chart: The following individuals ARE ALLOWED to visit without any restrictions: 1) Mia Ibanez, mother 2) Santiago Shamar, brother 3) Alex Pedraza, child 4) Terence Pedraza, child 5) Sandra Gonzaleson, child 6) Valerie Keila, [id number] 7) Terence Pedraza, [id number] For all other visitors, security must contact Mia(mother) or Santiago(brother) to obtain permission before allowing them to visit.
[2018-02-12 20:30] VITALS: BP 107/62
[2018-02-12] MEDS: TAMSULOSIN HCL 0.4 MG CAP.SR.24H XX SCH (21:36)
[2018-02-13] MEDS: MODAFINIL 100 MG TABLET GT SCH (06:06)
[2018-02-13] MEDS: LEVETIRACETAM 500 MG/5 ML LIQUID UDC GT SCH ×2 (08:15→21:02)
[2018-02-13] MEDS: DOCUSATE SODIUM 100 MG/10 ML LIQUID UDC GT SCH ×2 (08:15→21:01)
[2018-02-13] MEDS: MIRALAX 17 GM POWD.PACK GT SCH (08:20)
[2018-02-13] MEDS: CALMOSEPTINE 113 GM OINTMENT TP SCH ×2 (08:20→21:08)
[2018-02-13] MEDS: HYDROGEN PEROXIDE 3% 118 ML BOTTLE TP SCH ×2 (08:20→21:08)
[2018-02-13] MEDS: FAMOTIDINE 20 MG TABLET GT SCH ×2 (09:05→21:02)
[2018-02-13] MEDS: HEPARIN SODIUM,PORCINE 5,000 UNITS/ML VIAL SQ SCH ×2 (09:06→21:07)
[2018-02-13 09:12] VITALS: BP 96/54
--- NOTE | 2018-02-13 16:00 | NUR ---
PT'S SON ASKED CH. NURSE PRINTED INFORMATION REGARDING PT'S CONDITION AND CH. NURSE EXPLAINED TO HIM THAT HIS GRANDMOTHER NEEDS TO REQUEST THAT TO MEDICAL RECORDS ,AND HE SAID HE NEEDS THAT FOR NEXT THURSDAY AND THAT HE SAID THAT HE IS PT'S SON AND HE HAS THE RIGHT TO OBTAIN THAT .CH. NURSE EXPLAINED TO HIM THAT HE IS A MINOR AND HE IS NOT PT'S RESPONSIBLE CONSTITUTION PARTY ,HE NEEDS HIS FATHER OR HIS GRANDMOTHER TO DO THAT AND APPARENTLY HE UNDERSTOOD.
--- NOTE | 2018-02-13 17:28 | NUR ---
DR. GONZALEZ WAS CALLED TO VERIFY INFORMATION RE:PROCEDURE TO CHANGE GT/JT UNIT COORDINATOR STATED AT THIS TIME WHEN EVY RITCHIE N.P.FOR (G.I) CALLED HER. PER LATEST G.I NOTES WILL BE DONE NEXT WEEK.
--- NOTE | 2018-02-13 17:34 | NUR ---
EVY RITCHIE WAS CALLED BY CH. NURSE AND STATED THAT SHE WILL CANCEL PROCEDURE TOMORROW AND WILL SPEAK TO FOAM TANK LAMINATOR.
[2018-02-13 21:01] VITALS: BP 94/60
[2018-02-13] MEDS: TAMSULOSIN HCL 0.4 MG CAP.SR.24H XX SCH (21:08)
[2018-02-14] MEDS: MODAFINIL 100 MG TABLET GT SCH (05:40)
[2018-02-14 08:05] VITALS: BP 92/61
[2018-02-14] MEDS: HEPARIN SODIUM,PORCINE 5,000 UNITS/ML VIAL SQ SCH ×2 (08:19→21:00)
[2018-02-14] MEDS: HYDROGEN PEROXIDE 3% 118 ML BOTTLE TP SCH ×2 (08:21→21:15)
[2018-02-14] MEDS: MIRALAX 17 GM POWD.PACK GT SCH (08:21)
[2018-02-14] MEDS: LEVETIRACETAM 500 MG/5 ML LIQUID UDC GT SCH ×2 (08:21→21:15)
[2018-02-14] MEDS: CALMOSEPTINE 113 GM OINTMENT TP SCH ×2 (08:21→21:15)
[2018-02-14] MEDS: DOCUSATE SODIUM 100 MG/10 ML LIQUID UDC GT SCH ×2 (08:21→21:15)
[2018-02-14] MEDS: FAMOTIDINE 20 MG TABLET GT SCH ×2 (08:21→21:15)
--- NOTE | 2018-02-14 11:39 | NUR ---
PER EVY RITCHIE N.P(G.I) SHE WILL SEE PT. TODAY TO DECIDE IF PROCEDURE TO CHANGE GT/JT WILL BE DONE TOMORROW.
--- NOTE | 2018-02-14 12:27 | NUR ---
REPORTED TO CH. NURSES NIGHT AND DAY SHIFT BY DIFFERENT C.N.A.S THAT WHEN THEY CLEAN PT.FOR BM THEY ALWAYS FIND A LOT OF STOOL APPARENTLY INSIDE VAGINA.PTS' MOTHER PRESENT AT THIS TIME AND CAREFULLY CLEANSED IN PERINEUM AND OBSERVED ANATOMICALLY THAT STOOL CAN EASILY GO INSIDE VAGINA UNAVOIDABLY DURING BOWEL INCONTINENCE EPISODES AND EVEN WITH A SMALL AMOUNT OF STOOL.PT. WILL BE CHECKED MORE FREQUENTLY AND WILL BE CLEANSED PROMPTLY IN AN EFFORT TO PREVENT INFECTIONS RELATED TO THAT.
[2018-02-14 20:43] VITALS: BP 101/65
[2018-02-14] MEDS: TAMSULOSIN HCL 0.4 MG CAP.SR.24H XX SCH (21:15)
[2018-02-15] MEDS: MODAFINIL 100 MG TABLET GT SCH (05:20)
[2018-02-15 08:00] VITALS: BP 103/68
[2018-02-15] MEDS: LEVETIRACETAM 500 MG/5 ML LIQUID UDC GT SCH ×2 (08:43→21:23)
[2018-02-15] MEDS: DOCUSATE SODIUM 100 MG/10 ML LIQUID UDC GT SCH ×2 (08:43→21:23)
[2018-02-15] MEDS: MIRALAX 17 GM POWD.PACK GT SCH (08:44)
[2018-02-15] MEDS: FAMOTIDINE 20 MG TABLET GT SCH ×2 (08:46→21:23)
[2018-02-15] MEDS: HYDROGEN PEROXIDE 3% 118 ML BOTTLE TP SCH ×2 (08:48→21:23)
[2018-02-15] MEDS: CALMOSEPTINE 113 GM OINTMENT TP SCH ×2 (08:48→21:23)
[2018-02-15] MEDS: HEPARIN SODIUM,PORCINE 5,000 UNITS/ML VIAL SQ SCH ×2 (08:48→21:00)
--- NOTE | 2018-02-15 11:02 | NUR ---
Seen and examined by TRIPP Dalton with new orders noted and carried out.
--- NOTE | 2018-02-15 16:35 | NUR ---
Pharmacist call regarding the new order for Ditropan IR, that it may cause urinary retention. Page TRIPP Dalton regarding the issue, with new order, noted and carried out.
--- NOTE | 2018-02-15 16:42 | NUR ---
Notified Mia and Santiago Ibanez about D/C of Flomax and Ditropan prior to carrying out the orders. They both agree to the Tx Plan.
[2018-02-15] MEDS ORDERED: OXYBUTYNIN CHLORIDE 5 MG TABLET GT SCH (17:00)
[2018-02-15 20:10] VITALS: BP 98/61
[2018-02-16] MEDS: MODAFINIL 100 MG TABLET GT SCH (06:08)
[2018-02-16 08:00] VITALS: BP 112/73
[2018-02-16] MEDS: FAMOTIDINE 20 MG TABLET GT SCH ×2 (08:18→21:50)
[2018-02-16] MEDS: DOCUSATE SODIUM 100 MG/10 ML LIQUID UDC GT SCH ×2 (08:18→21:50)
[2018-02-16] MEDS: LEVETIRACETAM 500 MG/5 ML LIQUID UDC GT SCH ×2 (08:18→21:50)
[2018-02-16] MEDS: MIRALAX 17 GM POWD.PACK GT SCH (08:18)
[2018-02-16] MEDS: HYDROGEN PEROXIDE 3% 118 ML BOTTLE TP SCH ×2 (08:20→21:51)
[2018-02-16] MEDS: HEPARIN SODIUM,PORCINE 5,000 UNITS/ML VIAL SQ SCH ×2 (08:20→21:51)
[2018-02-16] MEDS: CALMOSEPTINE 113 GM OINTMENT TP SCH ×2 (08:20→21:51)
[2018-02-16 20:00] VITALS: BP 98/61
[2018-02-17] MEDS: JEVITY 1.2 1000 ML LIQUID GT PRN (05:21)
[2018-02-17] MEDS: MODAFINIL 100 MG TABLET GT SCH (05:21)
[2018-02-17 08:00] VITALS: BP 94/60
[2018-02-17] MEDS: DOCUSATE SODIUM 100 MG/10 ML LIQUID UDC GT SCH ×2 (08:57→21:33)
[2018-02-17] MEDS: LEVETIRACETAM 500 MG/5 ML LIQUID UDC GT SCH ×2 (08:57→21:34)
[2018-02-17] MEDS: MIRALAX 17 GM POWD.PACK GT SCH (08:58)
[2018-02-17] MEDS: FAMOTIDINE 20 MG TABLET GT SCH ×2 (08:59→21:34)
[2018-02-17] MEDS: CALMOSEPTINE 113 GM OINTMENT TP SCH ×2 (09:00→21:35)
[2018-02-17] MEDS: HYDROGEN PEROXIDE 3% 118 ML BOTTLE TP SCH ×2 (09:00→21:35)
[2018-02-17] MEDS: HEPARIN SODIUM,PORCINE 5,000 UNITS/ML VIAL SQ SCH ×2 (09:06→21:35)
--- NOTE | 2018-02-17 16:30 | NUR ---
SEEN AND EXAMINED BY DR ELAM,WITH NO NEW ORDERS NOTED.
[2018-02-17 20:00] VITALS: BP 99/63
[2018-02-18] MEDS: JEVITY 1.2 1000 ML LIQUID GT PRN ×2 (01:00→23:10)
[2018-02-18] MEDS: MODAFINIL 100 MG TABLET GT SCH (06:01)
[2018-02-18] MEDS: CALMOSEPTINE 113 GM OINTMENT TP SCH ×2 (08:02→21:09)
[2018-02-18] MEDS: LEVETIRACETAM 500 MG/5 ML LIQUID UDC GT SCH ×2 (08:02→21:07)
[2018-02-18] MEDS: FAMOTIDINE 20 MG TABLET GT SCH ×2 (08:02→21:08)
[2018-02-18] MEDS: DOCUSATE SODIUM 100 MG/10 ML LIQUID UDC GT SCH ×2 (08:02→21:07)
[2018-02-18] MEDS: MIRALAX 17 GM POWD.PACK GT SCH (08:02)
[2018-02-18] MEDS: HYDROGEN PEROXIDE 3% 118 ML BOTTLE TP SCH ×2 (08:03→21:09)
[2018-02-18] MEDS: HEPARIN SODIUM,PORCINE 5,000 UNITS/ML VIAL SQ SCH ×2 (08:05→21:21)
[2018-02-18 08:08] VITALS: BP 102/64
--- NOTE | 2018-02-18 11:30 | NUR ---
PVR DONE ORDERED, 45 RESIDUAL AFTER VOIDING.
[2018-02-18 20:00] VITALS: BP 100/62
[2018-02-19] MEDS: MODAFINIL 100 MG TABLET GT SCH (06:16)
[2018-02-19 08:10] VITALS: BP 109/72
[2018-02-19] MEDS: LEVETIRACETAM 500 MG/5 ML LIQUID UDC GT SCH ×2 (08:18→20:47)
[2018-02-19] MEDS: DOCUSATE SODIUM 100 MG/10 ML LIQUID UDC GT SCH ×2 (08:18→20:47)
[2018-02-19] MEDS: MIRALAX 17 GM POWD.PACK GT SCH (08:19)
[2018-02-19] MEDS: FAMOTIDINE 20 MG TABLET GT SCH ×2 (08:20→20:47)
[2018-02-19] MEDS: CALMOSEPTINE 113 GM OINTMENT TP SCH ×2 (08:21→20:47)
[2018-02-19] MEDS: HEPARIN SODIUM,PORCINE 5,000 UNITS/ML VIAL SQ SCH ×2 (08:21→20:48)
[2018-02-19] MEDS: HYDROGEN PEROXIDE 3% 118 ML BOTTLE TP SCH ×2 (08:21→20:48)
[2018-02-19 22:00] VITALS: BP 112/84
[2018-02-19] MEDS: JEVITY 1.2 1000 ML LIQUID GT PRN (23:46)
[2018-02-20] MEDS: MODAFINIL 100 MG TABLET GT SCH (05:48)
[2018-02-20] MEDS: DOCUSATE SODIUM 100 MG/10 ML LIQUID UDC GT SCH ×2 (08:36→20:21)
[2018-02-20] MEDS: HEPARIN SODIUM,PORCINE 5,000 UNITS/ML VIAL SQ SCH ×2 (08:38→21:41)
[2018-02-20] MEDS: CALMOSEPTINE 113 GM OINTMENT TP SCH ×2 (08:39→20:21)
[2018-02-20] MEDS: MIRALAX 17 GM POWD.PACK GT SCH (08:39)
[2018-02-20] MEDS: HYDROGEN PEROXIDE 3% 118 ML BOTTLE TP SCH ×2 (08:39→20:21)
[2018-02-20] MEDS: FAMOTIDINE 20 MG TABLET GT SCH ×2 (08:39→20:21)
[2018-02-20] MEDS: LEVETIRACETAM 500 MG/5 ML LIQUID UDC GT SCH ×2 (08:39→20:21)
[2018-02-20 10:55] VITALS: BP 99/66
[2018-02-20 22:00] VITALS: BP 103/68
[2018-02-21] MEDS: MODAFINIL 100 MG TABLET GT SCH (05:26)
[2018-02-21] MEDS: HYDROGEN PEROXIDE 3% 118 ML BOTTLE TP SCH ×2 (08:18→20:39)
[2018-02-21] MEDS: CALMOSEPTINE 113 GM OINTMENT TP SCH ×2 (08:18→20:39)
[2018-02-21] MEDS: MIRALAX 17 GM POWD.PACK GT SCH (08:18)
[2018-02-21] MEDS: DOCUSATE SODIUM 100 MG/10 ML LIQUID UDC GT SCH ×2 (08:18→20:39)
[2018-02-21] MEDS: LEVETIRACETAM 500 MG/5 ML LIQUID UDC GT SCH ×2 (08:18→20:39)
[2018-02-21] MEDS: FAMOTIDINE 20 MG TABLET GT SCH ×2 (08:18→20:39)
[2018-02-21] MEDS: HEPARIN SODIUM,PORCINE 5,000 UNITS/ML VIAL SQ SCH ×2 (08:19→21:27)
[2018-02-21 11:42] VITALS: BP 95/54
[2018-02-21 22:05] VITALS: BP 100/64
[2018-02-22] MEDS: MODAFINIL 100 MG TABLET GT SCH (05:48)
[2018-02-22 08:00] VITALS: BP 98/53
[2018-02-22] MEDS: DOCUSATE SODIUM 100 MG/10 ML LIQUID UDC GT SCH ×2 (08:00→21:58)
[2018-02-22] MEDS: MIRALAX 17 GM POWD.PACK GT SCH (08:00)
[2018-02-22] MEDS: LEVETIRACETAM 500 MG/5 ML LIQUID UDC GT SCH ×2 (08:00→21:59)
[2018-02-22] MEDS: FAMOTIDINE 20 MG TABLET GT SCH ×2 (08:00→21:59)
[2018-02-22] MEDS: HEPARIN SODIUM,PORCINE 5,000 UNITS/ML VIAL SQ SCH ×2 (08:02→23:01)
[2018-02-22] MEDS: CALMOSEPTINE 113 GM OINTMENT TP SCH ×2 (08:02→21:59)
[2018-02-22] MEDS: HYDROGEN PEROXIDE 3% 118 ML BOTTLE TP SCH ×2 (08:03→21:59)
--- NOTE | 2018-02-22 11:00 | NUR ---
Seen by Day ALMAGUER and Dr. Villeda with no new order.
--- NOTE | 2018-02-22 12:31 | NUR ---
Seen by Dejah LAU, notified J-tube connection dislodgement, new order given to do Kub with Gastrografin, abdomen non-distended, bowel sounds present, bowel movement reported last night, no n/v noted, will continue monitoring, Mother at bedside and aware of new order.
[2018-02-22] MEDS ORDERED: DIATR MEGLU/DIATRIZOATE SODIUM 30 ML SOLUTION PO ONE (14:05)
[2018-02-22] MEDS: JEVITY 1.2 1000 ML LIQUID GT PRN (17:26)
[2018-02-22 20:00] VITALS: BP 100/57
--- NOTE | 2018-02-22 20:58 | NUR ---
CALL BACK WITH NEW ORDER X-RAY ABDOMINAL KUB WITHOUT CONTRAST NOTED.
[2018-02-23] MEDS: MODAFINIL 100 MG TABLET GT SCH (06:26)
[2018-02-23 08:00] VITALS: BP 100/59
[2018-02-23] MEDS: DOCUSATE SODIUM 100 MG/10 ML LIQUID UDC GT SCH ×2 (09:00→21:10)
[2018-02-23] MEDS: CALMOSEPTINE 113 GM OINTMENT TP SCH ×2 (09:00→21:13)
[2018-02-23] MEDS: HYDROGEN PEROXIDE 3% 118 ML BOTTLE TP SCH ×2 (09:00→21:13)
[2018-02-23] MEDS: LEVETIRACETAM 500 MG/5 ML LIQUID UDC GT SCH ×2 (09:00→21:11)
[2018-02-23] MEDS: FAMOTIDINE 20 MG TABLET GT SCH ×2 (09:00→21:11)
[2018-02-23] MEDS: HEPARIN SODIUM,PORCINE 5,000 UNITS/ML VIAL SQ SCH ×2 (09:00→21:13)
[2018-02-23] MEDS: MIRALAX 17 GM POWD.PACK GT SCH (09:00)
--- NOTE | 2018-02-23 11:00 | NUR ---
CALL DR GONZALEZ TO REPORT THE KUB RESULTS,AWARE SPOKE TO THE RADIOLOGIST DR BOSSMAN LANDEROS,AND AWARE THEY WANT TO KNOWN WHERE IS THE JT DISLODGED CONNECTION IS LOCATED,HE STATED HE COMPARE,WITH THE PREVIOUS KUB WITH CONTRAST ,AND IS UNABLE TO VISUALIZE THE JT LUMEN,ONLY CAN SEE THE TIP AND IS IN PLACE.HE RECOMMENDED TO DO A CT OF ABDOMEN WITH CONTRAST.
--- NOTE | 2018-02-23 12:30 | NUR ---
EVY RITCHIE CALL BACK,AWARE OF THE RADIOLOGIST RECOMMENDATION WITH NEW ORDERS NOTED AND CARRIED OUT.MIGUEL PT'S MOM AWARE SHE WILL NOTIFY THE PT'S .
--- NOTE | 2018-02-23 18:55 | NUR ---
SEEN AND EXAMINED BY DR ELAM,NO NEW ORDERS.
[2018-02-23 20:35] VITALS: BP 103/69
[2018-02-23] MEDS: JEVITY 1.2 1000 ML LIQUID GT PRN (21:08)
[2018-02-24] MEDS: MODAFINIL 100 MG TABLET GT SCH (05:42)
[2018-02-24 08:00] VITALS: BP 94/61
[2018-02-24] MEDS: LEVETIRACETAM 500 MG/5 ML LIQUID UDC GT SCH ×2 (09:10→21:21)
[2018-02-24] MEDS: FAMOTIDINE 20 MG TABLET GT SCH ×2 (09:10→21:21)
[2018-02-24] MEDS: MIRALAX 17 GM POWD.PACK GT SCH (09:10)
[2018-02-24] MEDS: DOCUSATE SODIUM 100 MG/10 ML LIQUID UDC GT SCH ×2 (09:10→21:21)
[2018-02-24] MEDS: HYDROGEN PEROXIDE 3% 118 ML BOTTLE TP SCH ×2 (09:14→21:22)
[2018-02-24] MEDS: HEPARIN SODIUM,PORCINE 5,000 UNITS/ML VIAL SQ SCH ×2 (09:14→21:22)
[2018-02-24] MEDS: CALMOSEPTINE 113 GM OINTMENT TP SCH ×2 (09:14→21:22)
--- NOTE | 2018-02-24 09:40 | NUR ---
Ct abdomen with contrast done,procedure tolerated well,pt returned to the room,transported in bed in stable condition.Mother at bedside.
--- NOTE | 2018-02-24 13:43 | NUR ---
CHRISTIANO met with patient's mother Mia today, checked in with her to see how she was feeling. Mia stated that she has been feeling more relaxed and was happy that her daughter was stable here. Mia expressed being happy with the care here. CHRISTIANO generated a follow-up conversation about self-care with Mia. Mia stated that she is happy to have started working again, and her sleep has been better. Mia also discussed incorporating walks into her days several times a week. CHRISTIANO commended Mia for her efforts with self-care, and reminded her about the importance of self-care as she continues to be the primary care provider for her daughter. Mia was in agreement, and thanked CHRISTIANO for her time and support. SW to continue to monitor Mia and provide appropriate interventions, as needed.
--- NOTE | 2018-02-24 15:00 | NUR ---
Seen and examined by Dejah Reagan aware of the ct abdomen with contrast results,she will consult with Dr ngo regarding the results.
--- NOTE | 2018-02-24 18:30 | NUR ---
New orders noted to obtain consent for EGD for foreign body removal and possible jt/gt replacement,JUDIO Mia de la cruz pt's mom ,aware of new orders and she agreed with the plan of care.
[2018-02-24 20:00] VITALS: BP 97/62
--- NOTE | 2018-02-24 21:00 | NUR ---
Consent for EGD for foreign body removal and possible JT/Gt placement obtained.
--- NOTE | 2018-02-25 | NUR ---
NPO after midnight initiated as ordered.
[2018-02-25 00:33] LABS: BASOPHILS % (AUTO) 0.4 % (0.0-2.0); EOSINOPHILS # (AUTO) 0.1 K/uL (0.0-0.7); EOSINOPHILS % (AUTO) 1.9 % (0.0-7.0); HEMATOCRIT 38.5 % (31.2-41.9); HEMOGLOBIN 13.2 g/dL (10.9-14.3); LYMPHOCYTES % (AUTO) 29.8 % (20.5-51.5); MEAN CORPUSCULAR HEMOGLOBIN 28.4 uug (24.7-32.8); MEAN CORPUSCULAR HGB CONC 34 g/dL (32.3-35.6); MEAN CORPUSCULAR VOLUME 82.8 fL (75.5-95.3); MONOCYTES # (AUTO) 0.5 K/uL (2.0-10.0); MONOCYTES % (AUTO) 7.4 % (0.0-11.0); NEUTROPHILS # (AUTO) 4.1 K/uL (1.8-8.9); NEUTROPHILS % (AUTO) 60.5 % (38.5-71.5); PLATELET COUNT (AUTO) 225 K/uL (179-408); RED BLOOD CELL COUNT(AUTO) 4.65 MIL/uL (3.63-4.92); WHITE BLOOD COUNT (AUTO) 6.7 K/uL (3.8-11.8)
[2018-02-25 00:37] LABS: BILIRUBIN,TOTAL 0.2 mg/dL (0.2-1.0); CREATININE 0.6 mg/dL (0.6-1.3); POTASSIUM 3.7 mmol/L (3.5-5.1); TOTAL PROTEIN, SERUM 7.5 g/dL (6.4-8.2)
[2018-02-25] MEDS: MODAFINIL 100 MG TABLET GT SCH (06:15)
[2018-02-25] MEDS: CALMOSEPTINE 113 GM OINTMENT TP SCH ×2 (08:00→20:53)
[2018-02-25] MEDS: HYDROGEN PEROXIDE 3% 118 ML BOTTLE TP SCH ×2 (08:00→20:53)
[2018-02-25 09:00] VITALS: BP 110/80
[2018-02-25] MEDS: MIRALAX 17 GM POWD.PACK GT SCH (09:00)
[2018-02-25] MEDS: DOCUSATE SODIUM 100 MG/10 ML LIQUID UDC GT SCH ×2 (09:00→20:51)
[2018-02-25] MEDS: LEVETIRACETAM 500 MG/5 ML LIQUID UDC GT SCH ×2 (09:00→20:51)
[2018-02-25] MEDS: FAMOTIDINE 20 MG TABLET GT SCH ×2 (09:00→20:51)
[2018-02-25] MEDS: HEPARIN SODIUM,PORCINE 5,000 UNITS/ML VIAL SQ SCH ×2 (09:00→20:55)
--- NOTE | 2018-02-25 10:30 | NUR ---
Patient left for EGD for foreign body removal and possible J-tube / G-tube replacement. In stable condition, BP 107/72, pulse 76, Temp. 98.1, o2 99%, accompanied by mother.
[2018-02-25 10:45] VITALS: BP 110/80
[2018-02-25] MEDS: JEVITY 1.2 1000 ML LIQUID GT PRN (13:37)
--- NOTE | 2018-02-25 13:51 | NUR ---
Patient returned from surgical Depat. after EGD for foreign body removal and possible J-tube / G-tube replacement. EGD done, foreign body removed and J-tube / G-tube replaced. Pt noted in stable condition, BP 116/79, pulse 88, Temp. 98.7, o2 98%. Dr Og, the surgeon reassumed all previous orders. Notified mother at bedside.
--- NOTE | 2018-02-25 15:07 | NUR ---
INTERDISCIPLINARY PLAN OF CARE CONFERENCE was held today. Patient's mother was invited to the meeting, but she was unable to attend. Dr. Hector and the Interdisciplinary Team reviewed the current plan of care in detail. RN provided updates on patient's medical condition, changes in meds, and outcome of recent CT scan. See RN IDT conference notes. No major changes were reported. See also all other disciplines IDT notes and physician's progress notes for additional details.
--- NOTE | 2018-02-25 16:55 | NUR ---
Pharmacy Update from Today's 02/25/18 IDT Meeting: VS: Temp 97.4 BP 94/61 HR 77 LABS: (from 01/04/18, no new labs) Wbc 7.6H/H 11.6/34.9Plt 250 Na 136K 4.0Cl 101CO2 26BUN/SCr 9/0.6 BS 138Ca 8.9Phos 4.5Mg 2.2 MEDICATION USE REVIEWED: > Pt is on Keppra 1000mg q12hr since admission 12/29/17. Calculated CrCl 145.3 ml/min, renal fxn ok for the current dose. No seizure activity reported. > Pt is on modafinil 50mg daily, initiated from [place] before transfer (Case reports of use post-stroke), continued for possible improved post-stroke fatigue and neurologic responsiveness per pt family reports of improved movement in limbs, response to verbal commands. Continued trial per family. > Pt on Heparin 5000units q12hr for DVT prophylaxis, last plt 250, no bleeding reported since admit > Pt on famotidine 20mg q12hr for GI prophylaxis, renal fxn ok for dose. >PRN MED USAGE: (January) Tylenol x 0 bisacodyl x 0 [place] x 0 MOM x 0 Fleet enema (if MOM ineffective) x 0 NEW ORDERS NOTED > Flomax d/c'd 02/15 per Rx rec d/t clogging jtube and unclear indication, with bladder scans initiated for pvr monitoring Patient was reviewed and discussed in detail, no medication issues at this time since last IDT. Will continue following
[2018-02-25 17:30] VITALS: BP 101/69
[2018-02-25 20:00] VITALS: BP 97/71
[2018-02-26 00:10] VITALS: BP 105/64
[2018-02-26 03:48] VITALS: BP 101/60
[2018-02-26] MEDS: MODAFINIL 100 MG TABLET GT SCH (05:44)
[2018-02-26 08:06] VITALS: BP 99/66
[2018-02-26] MEDS: DOCUSATE SODIUM 100 MG/10 ML LIQUID UDC GT SCH ×3 (08:15→21:31)
[2018-02-26] MEDS: LEVETIRACETAM 500 MG/5 ML LIQUID UDC GT SCH ×3 (08:16→21:31)
[2018-02-26] MEDS: FAMOTIDINE 20 MG TABLET GT SCH ×3 (08:16→21:31)
[2018-02-26] MEDS: MIRALAX 17 GM POWD.PACK GT SCH (08:16)
[2018-02-26] MEDS: HYDROGEN PEROXIDE 3% 118 ML BOTTLE TP SCH ×2 (08:17→21:32)
[2018-02-26] MEDS: HEPARIN SODIUM,PORCINE 5,000 UNITS/ML VIAL SQ SCH ×2 (08:17→21:43)
[2018-02-26] MEDS: CALMOSEPTINE 113 GM OINTMENT TP SCH ×2 (08:17→21:31)
--- NOTE | 2018-02-26 08:45 | NUR ---
DR. GONZALEZ(G.I) WAS PAGED DUE TO JT /GT WAS NOTED LEAKING.
--- NOTE | 2018-02-26 09:00 | NUR ---
EVY MarquezG.I) WAS ALSO PAGED AND PT'S MOTHER WAS AWARE ALSO .
--- NOTE | 2018-02-26 09:00 | NUR ---
UNABLE TO ADMINISTER MED
--- NOTE | 2018-02-26 14:00 | NUR ---
DR. HAQ CALLED BACK AND AWARE OF JT/GT OUT AND WITH NEW ORDERS CARRIED OUT AND PT'S MOTHER PRESENT AND IN AGREEMENT.F/C 16X10 CC INSERTED IN OLD JT/GT SITE AND PROCEDURE WELL TOLERATED .
--- NOTE | 2018-02-26 15:12 | NUR ---
DR. GONZALEZ WAS PAGED AGAIN.
--- NOTE | 2018-02-26 16:02 | NUR ---
DR. HAQ WAS PAGED AND ALSO DR. GONZALEZ.
--- NOTE | 2018-02-26 16:08 | NUR ---
DR. ELAM WAS PAGED.
--- NOTE | 2018-02-26 16:41 | NUR ---
DR. ELAM CALLED BACK AND STATED THAT HE WILL SPEAK DIRECTLY WITH DR. GONZALEZ AND IN MAIN TIME MAY INSERT IV TO GIVE AM KEPPRA DOSE IF NOT AVAILABLE GT BUT DR. GONZALEZ (G.I) SHOWED UP AT THIS TIME AND [place] PHARMACIST ANGELINA TOLD NURSE THAT ITS O.K TO GIVE AM DOSE SOON GT PLACEMENT ITS CONFIRMED AND ENDORSE TO NOC SHIFT TO GIVE PM DOSE A LITTLE LATER.PT'S MOTHER IN AGREEMENT.
[2018-02-26] MEDS ORDERED: DIATR MEGLU/DIATRIZOATE SODIUM 30 ML SOLUTION PO ONE (17:55)
--- NOTE | 2018-02-26 18:26 | NUR ---
KUB WITH GASTROGRAFIN SHOWED GT IN PLACE IN STOMACH,AND WILL BE CHANGED PRN FOR MALFUNCTIONING OR DISLODGEMENT ORDERED BY DR GONZALEZ,PT'S MOTHER IN AGREEMENT.
[2018-02-26 20:14] VITALS: BP 104/56
[2018-02-27] MEDS: MODAFINIL 100 MG TABLET GT SCH (06:04)
[2018-02-27] MEDS: MIRALAX 17 GM POWD.PACK GT SCH (08:18)
[2018-02-27] MEDS: DOCUSATE SODIUM 100 MG/10 ML LIQUID UDC GT SCH ×2 (08:18→21:11)
[2018-02-27] MEDS: LEVETIRACETAM 500 MG/5 ML LIQUID UDC GT SCH ×2 (08:18→21:11)
[2018-02-27] MEDS: FAMOTIDINE 20 MG TABLET GT SCH ×2 (08:19→21:11)
[2018-02-27] MEDS: HEPARIN SODIUM,PORCINE 5,000 UNITS/ML VIAL SQ SCH ×2 (08:20→21:52)
[2018-02-27] MEDS: HYDROGEN PEROXIDE 3% 118 ML BOTTLE TP SCH ×2 (08:21→21:11)
[2018-02-27] MEDS: CALMOSEPTINE 113 GM OINTMENT TP SCH ×2 (08:21→21:11)
[2018-02-27 09:55] VITALS: BP 99/61
[2018-02-27] MEDS: JEVITY 1.2 1000 ML LIQUID GT PRN (11:48)
[2018-02-27 20:14] VITALS: BP 106/63
--- NOTE | 2018-02-28 03:00 | NUR ---
Clarification of order done to D/C order to use JT for feeding and the order to use GT for medications RE: Patient is now with gastrostomy tube and is working properly, no residuals or n/v noted, aspiration precaution observed, kept patient clean and comfortable.
[2018-02-28] MEDS: MODAFINIL 100 MG TABLET GT SCH (05:16)
[2018-02-28] MEDS: MIRALAX 17 GM POWD.PACK GT SCH (08:00)
[2018-02-28] MEDS: DOCUSATE SODIUM 100 MG/10 ML LIQUID UDC GT SCH ×2 (08:00→21:27)
[2018-02-28] MEDS: FAMOTIDINE 20 MG TABLET GT SCH ×2 (08:00→21:28)
[2018-02-28] MEDS: LEVETIRACETAM 500 MG/5 ML LIQUID UDC GT SCH ×2 (08:00→21:27)
[2018-02-28] MEDS: CALMOSEPTINE 113 GM OINTMENT TP SCH ×2 (08:02→21:29)
[2018-02-28] MEDS: HYDROGEN PEROXIDE 3% 118 ML BOTTLE TP SCH ×2 (08:02→21:29)
[2018-02-28] MEDS: HEPARIN SODIUM,PORCINE 5,000 UNITS/ML VIAL SQ SCH ×2 (08:02→21:31)
[2018-02-28 08:06] VITALS: BP 96/58
[2018-02-28] MEDS: JEVITY 1.2 1000 ML LIQUID GT PRN (08:11)
--- NOTE | 2018-02-28 16:04 | NUR ---
SEEN BY DR. PAPA BRANNON.
[2018-02-28 20:34] VITALS: BP 105/65
[2018-03-01] MEDS: JEVITY 1.2 1000 ML LIQUID GT PRN (04:14)
[2018-03-01] MEDS: MODAFINIL 100 MG TABLET GT SCH (06:23)
[2018-03-01] MEDS: FAMOTIDINE 20 MG TABLET GT SCH ×2 (08:04→20:53)
[2018-03-01] MEDS: DOCUSATE SODIUM 100 MG/10 ML LIQUID UDC GT SCH ×2 (08:04→20:53)
[2018-03-01] MEDS: CALMOSEPTINE 113 GM OINTMENT TP SCH ×2 (08:04→20:53)
[2018-03-01] MEDS: HYDROGEN PEROXIDE 3% 118 ML BOTTLE TP SCH ×2 (08:04→20:53)
[2018-03-01] MEDS: MIRALAX 17 GM POWD.PACK GT SCH (08:04)
[2018-03-01] MEDS: HEPARIN SODIUM,PORCINE 5,000 UNITS/ML VIAL SQ SCH ×2 (08:04→20:55)
[2018-03-01] MEDS: LEVETIRACETAM 500 MG/5 ML LIQUID UDC GT SCH ×2 (08:04→20:53)
[2018-03-01 08:12] VITALS: BP 93/61
--- NOTE | 2018-03-01 13:59 | NUR ---
PT. SEEN BY SUZAN FULTON WITH NEW ORDERS CARRIED OUT AND EVY RITCHIE N.P FOR DR. GONZALEZ WAS NOTIFIED AND AWARE OF CONSULTATION AND PT'S CONDITION.V/S FOLLOW:TEMP 97.8,HR 78X',RR 18X',B/P 93/61,O2 SAT 99%.
--- NOTE | 2018-03-01 16:25 | NUR ---
Patient seen today by Dr. Ramos for teeth cleaning. See dental notes for details.
--- NOTE | 2018-03-01 16:30 | NUR ---
SEEN BY DR. BARRIENTOS FOR TEETH CLEANING.MESSAGE LEFT FOR SUZAN Sandy AND EVY RITCHIE (G.I) FOR RESULT OF KUB. PT. WITH BOWEL SOUNDS AND WITH NO S/S OF ACUTE DISTRESS AND ABLE TO DIGEST FORMULA AND NO ABNORMAL GASTRIC RESIDUALS.ASPIRATION PRECAUTIONS KEPT AT ALL TIMES.
--- NOTE | 2018-03-01 19:05 | NUR ---
PT. HAD 2 LARGE SOFT STOOL.
[2018-03-01 22:29] VITALS: BP 100/64
[2018-03-02] MEDS: JEVITY 1.2 1000 ML LIQUID GT PRN (04:07)
[2018-03-02] MEDS: MODAFINIL 100 MG TABLET GT SCH (05:36)
[2018-03-02 08:00] VITALS: BP 91/60
[2018-03-02] MEDS: LEVETIRACETAM 500 MG/5 ML LIQUID UDC GT SCH ×2 (08:43→21:27)
[2018-03-02] MEDS: DOCUSATE SODIUM 100 MG/10 ML LIQUID UDC GT SCH ×2 (08:43→21:27)
[2018-03-02] MEDS: MIRALAX 17 GM POWD.PACK GT SCH (08:43)
[2018-03-02] MEDS: FAMOTIDINE 20 MG TABLET GT SCH ×2 (08:43→21:29)
[2018-03-02] MEDS: HEPARIN SODIUM,PORCINE 5,000 UNITS/ML VIAL SQ SCH ×2 (08:44→21:30)
[2018-03-02] MEDS: CALMOSEPTINE 113 GM OINTMENT TP SCH ×2 (08:44→21:29)
[2018-03-02] MEDS: HYDROGEN PEROXIDE 3% 118 ML BOTTLE TP SCH ×2 (08:44→21:29)
[2018-03-02 21:43] VITALS: BP 96/67
[2018-03-03] MEDS: JEVITY 1.2 1000 ML LIQUID GT PRN ×2 (02:25→21:00)
[2018-03-03] MEDS: MODAFINIL 100 MG TABLET GT SCH (05:17)
[2018-03-03 08:09] VITALS: BP 104/68
[2018-03-03] MEDS: DOCUSATE SODIUM 100 MG/10 ML LIQUID UDC GT SCH ×2 (08:31→21:00)
[2018-03-03] MEDS: LEVETIRACETAM 500 MG/5 ML LIQUID UDC GT SCH ×2 (08:31→21:03)
[2018-03-03] MEDS: MIRALAX 17 GM POWD.PACK GT SCH (08:31)
[2018-03-03] MEDS: FAMOTIDINE 20 MG TABLET GT SCH ×2 (08:32→21:03)
[2018-03-03] MEDS: HYDROGEN PEROXIDE 3% 118 ML BOTTLE TP SCH ×2 (08:32→21:04)
[2018-03-03] MEDS: CALMOSEPTINE 113 GM OINTMENT TP SCH ×2 (08:32→21:04)
[2018-03-03] MEDS: HEPARIN SODIUM,PORCINE 5,000 UNITS/ML VIAL SQ SCH ×2 (08:32→21:04)
--- NOTE | 2018-03-03 17:18 | NUR ---
Dejah Reagan aware pt has abdominal distention ,flatulence,with new orders noted and carried out.
[2018-03-03 20:00] VITALS: BP 105/72
[2018-03-04] MEDS: MODAFINIL 100 MG TABLET GT SCH (05:42)
[2018-03-04 08:02] VITALS: BP 118/80
[2018-03-04] MEDS: HYDROGEN PEROXIDE 3% 118 ML BOTTLE TP SCH ×2 (08:44→20:56)
[2018-03-04] MEDS: LEVETIRACETAM 500 MG/5 ML LIQUID UDC GT SCH ×2 (08:44→20:53)
[2018-03-04] MEDS: FAMOTIDINE 20 MG TABLET GT SCH ×2 (08:44→20:53)
[2018-03-04] MEDS: CALMOSEPTINE 113 GM OINTMENT TP SCH ×2 (08:44→20:56)
[2018-03-04] MEDS: MIRALAX 17 GM POWD.PACK GT SCH (08:44)
[2018-03-04] MEDS: DOCUSATE SODIUM 100 MG/10 ML LIQUID UDC GT SCH ×2 (08:44→20:53)
[2018-03-04] MEDS: HEPARIN SODIUM,PORCINE 5,000 UNITS/ML VIAL SQ SCH ×2 (09:00→21:05)
[2018-03-04] MEDS: JEVITY 1.2 1000 ML LIQUID GT PRN (15:06)
[2018-03-04 20:00] VITALS: BP 112/77
[2018-03-05] MEDS: MODAFINIL 100 MG TABLET GT SCH (05:10)
[2018-03-05 08:08] VITALS: BP 117/78
[2018-03-05] MEDS: CALMOSEPTINE 113 GM OINTMENT TP SCH ×2 (08:23→20:46)
[2018-03-05] MEDS: FAMOTIDINE 20 MG TABLET GT SCH ×2 (08:23→20:43)
[2018-03-05] MEDS: MIRALAX 17 GM POWD.PACK GT SCH (08:23)
[2018-03-05] MEDS: DOCUSATE SODIUM 100 MG/10 ML LIQUID UDC GT SCH ×2 (08:23→20:43)
[2018-03-05] MEDS: HYDROGEN PEROXIDE 3% 118 ML BOTTLE TP SCH ×2 (08:23→20:46)
[2018-03-05] MEDS: LEVETIRACETAM 500 MG/5 ML LIQUID UDC GT SCH ×2 (08:23→20:43)
[2018-03-05] MEDS: HEPARIN SODIUM,PORCINE 5,000 UNITS/ML VIAL SQ SCH ×2 (08:24→20:52)
[2018-03-05 20:00] VITALS: BP 102/68
[2018-03-06] MEDS: MODAFINIL 100 MG TABLET GT SCH (05:37)
--- NOTE | 2018-03-06 07:20 | NUR ---
Received PT asleep in bed with safety measures. VS: bp:112/74, temp: 97.6, resp: 18, o2: 99, hr: 101. No S/S of SOB. No discomfort noted at the time. Little secretion with yellowish, thick mucous noted. Returned PT with safety measures. Side rails up, call light within reach. Will continue to monitor.
[2018-03-06] MEDS: MIRALAX 17 GM POWD.PACK GT SCH (08:20)
[2018-03-06] MEDS: DOCUSATE SODIUM 100 MG/10 ML LIQUID UDC GT SCH (08:20)
[2018-03-06] MEDS: FAMOTIDINE 20 MG TABLET GT SCH (08:20)
[2018-03-06] MEDS: LEVETIRACETAM 500 MG/5 ML LIQUID UDC GT SCH (08:20)
[2018-03-06] MEDS: HYDROGEN PEROXIDE 3% 118 ML BOTTLE TP SCH (08:21)
[2018-03-06] MEDS: HEPARIN SODIUM,PORCINE 5,000 UNITS/ML VIAL SQ SCH (08:21)
[2018-03-06] MEDS: CALMOSEPTINE 113 GM OINTMENT TP SCH (08:21)
--- NOTE | 2018-03-06 09:30 | NUR ---
Pt noted with shallow breathing ,diaphoretic ,with bluish discoloration on nails beds and lips,vital sign check b/p 184/113,Hr 146,o2 sat 56 %,temp 98.5,R10,suctioned with small amount of pale yellowish thick secretions,increase o2 call respiratory therapist ,bp recheck 145/102,o2 sat 99%,ambubagging 100%,Hr 123.t 98.5.
--- NOTE | 2018-03-06 09:35 | NUR ---
CALLED TO ROOM DUE TO LOW SATURATION, PT APPEARED TO BE APNEIC. B/S SEVERELY DIMINISHED. PT WAS MANUALLY VENTILATED WITH AMBU BAG WITH 100% OXYGEN. ABG DRAWN AND TRANSFERRED TO ER.
[2018-03-06 09:49] LABS: ABG BASE EXCESS -1.2 mmol/L; ABG HCO3 23.8 mmol/L; ABG PCO2 40.9 mmHg (35.0-45.0); ABG PH 7.382 (7.350-7.450); ABG PO2 451.8 mmHg (75.0-100.0); ABG SITE LEFT RADIAL; ABG TOTAL HEMOGLOBIN 14.5 G/dL (12.0-16.0); COHb 0.9 % (0.5-1.5); MetHb 0.2 % (0.0-1.5); O2Hb 98.6 % (94.0-97.0)
--- NOTE | 2018-03-06 10:15 | NUR ---
Dr durand decommissioning well site manager for Dr Nathan aware of pt condition,with new orders to transfer pt to ER for evaluation,Combine Inspector Marielos aware of pt condition ,and aware of new orders ,pt's mother Mia aware of new orders,she is on her way to the hospital to see her daughter,pt transfer to ER accompanied by the Rt,bagging at 100 % o2,and 2 nurses,report given to Donte Charles.
[2018-03-06] MEDS ORDERED: MODA100T14 GT (13:19)
[2018-03-06] MEDS ORDERED: BISA10SU8 RC (13:19)
[2018-03-06] MEDS ORDERED: LEVE500T20 GT (13:19)
[2018-03-06] MEDS ORDERED: ACET160S2 GT (13:19)
[2018-03-06] MEDS ORDERED: HEPA500034 IJ (13:19)
[2018-03-06] MEDS ORDERED: MENT71OI TP (13:19)
[2018-03-06] MEDS ORDERED: FAMO-132 GT (13:19)
[2018-03-06] MEDS ORDERED: DOCU50LI GT (13:19)
[2018-03-06] MEDS ORDERED: POLY17PO4 GT (13:19)
[2018-03-06] MEDS ORDERED: HYDR-3974 PO (13:19)
[2018-03-06] MEDS ORDERED: LACT-209 GT (14:30)
== END 2018-03-06 14:47 | disposition short-term general hospital (02) | DRG 133 ==
LOC: SA 19:53 → UNDOLOA 03-06 10:15
PROVIDERS: ADMIT Internal Medicine Nephrology; ATTEND Internal Medicine Pulmonary Disease
DX: J96.21 Acute and chronic respiratory failure with hypoxia (principal); G93.40 Encephalopathy, unspecified; G93.89 Other specified disorders of brain; Z93.0 Tracheostomy status; Z99.81 Dependence on supplemental oxygen; R13.10 Dysphagia, unspecified; Z43.1 Encounter for attention to gastrostomy; E44.1 Mild protein-calorie malnutrition; Z93.4 Other artificial openings of gastrointestinal tract status; Z93.1 Gastrostomy status; T85.528A Displacement of other gastrointestinal prosthetic devices, implants and grafts, initial encounter; R14.0 Abdominal distension (gaseous); I69.191 Dysphagia following nontraumatic intracerebral hemorrhage; I69.118 Other symptoms and signs involving cognitive functions following nontraumatic intracerebral hemorrhage; I69.198 Other sequelae of nontraumatic intracerebral hemorrhage; R40.2430 Glasgow coma scale score 3-8, unspecified time; G40.909 Epilepsy, unspecified, not intractable, without status epilepticus; D64.9 Anemia, unspecified; Z98.2 Presence of cerebrospinal fluid drainage device; Z79.899 Other long term (current) drug therapy; Z22.321 Carrier or suspected carrier of Methicillin susceptible Staphylococcus aureus; L03.039 Cellulitis of unspecified toe; Z87.440 Personal history of urinary (tract) infections; Z87.01 Personal history of pneumonia (recurrent); K05.10 Chronic gingivitis, plaque induced; Z68.27 Body mass index [BMI] 27.0-27.9, adult; R22.9 Localized swelling, mass and lump, unspecified; O94 Sequelae of complication of pregnancy, childbirth, and the puerperium; J96.92 Respiratory failure, unspecified with hypercapnia
CPT/HCPCS: 36415; 36600; 71045; 74018; 83735; 84100; 85025; 85610; 85730; 86580; 87070; 87077; 90732; 97165; A4217; A4663; A9150; C1751; J7030; Q9963

== ENCOUNTER 2017-12-30 10:59 | Outpatient (CLI) | payer MEDICAID | END 2017-12-30 23:59 | disposition home or self-care (01) | LOC: CT 10:59 | PROVIDERS: ATTEND Internal Medicine | DX: G93.89 Other specified disorders of brain (principal); Z98.2 Presence of cerebrospinal fluid drainage device | CPT/HCPCS: 70450 ==

== ENCOUNTER → 2018-02-24 | Outpatient (CLI) | payer MEDICAID ==
[~2018-02-24] MED LIST: ACET160S2 GT; BISA10SU8 RC; DOCU50LI GT; FAMO-132 GT; HEPA500034 IJ; HYDR-3974 PO; LACT-209 GT; LEVE500T20 GT; MENT71OI TP; MODA100T14 GT; POLY17PO4 GT
== END ==
LOC: CT 12:00
PROVIDERS: ATTEND Internal Medicine Gastroenterology
DX: K94.13 Enterostomy malfunction (principal)
CPT/HCPCS: J3490; Q9967

== ENCOUNTER 2018-02-25 08:52 | Day surgery (SDC) | payer MEDICAID, OTHER ==
[~2018-02-25 08:52] MED LIST changes: -ACET160S2 GT; -BISA10SU8 RC; -DOCU50LI GT; -FAMO-132 GT; -HEPA500034 IJ; -HYDR-3974 PO; +IOHEXOL 300MG/ML 100 ML INFUS..BTL ONE; +IV NORMAL SALINE 100 ML ONE; -LACT-209 GT; -LEVE500T20 GT; -MENT71OI TP; -MODA100T14 GT; +NORMAL SALINE FLUSH 10 ML DISP.SYRIN ONE; -POLY17PO4 GT
[2018-02-25] MEDS ORDERED: PROPOFOL 200 MG/20 ML BOTTLE IV ONE (08:53)
[2018-02-25] MEDS ORDERED: IV NORMAL SALINE 1000 ML BAG IV ONE (08:53)
[2018-02-25] MEDS ORDERED: LIDOCAINE-MPF 2% 5 ML VIAL MC ONE (08:53)
== END 2018-02-25 13:25 ==
LOC: DS 08:52
PROVIDERS: ATTEND Internal Medicine Gastroenterology
PROC: 0DHA3UZ Insertion of Feeding Device into Jejunum, Percutaneous Approach (ICD-10-PCS; principal; 2018-02-25)
PROC: 0DPD8UZ Removal of Feeding Device from Lower Intestinal Tract, Via Natural or Artificial Opening Endoscopic (ICD-10-PCS; 2018-02-25)
DX: K94.23 Gastrostomy malfunction (principal); R13.10 Dysphagia, unspecified; I69.291 Dysphagia following other nontraumatic intracranial hemorrhage; I69.218 Other symptoms and signs involving cognitive functions following other nontraumatic intracranial hemorrhage; E46 Unspecified protein-calorie malnutrition; Z98.2 Presence of cerebrospinal fluid drainage device; G91.1 Obstructive hydrocephalus; J96.10 Chronic respiratory failure, unspecified whether with hypoxia or hypercapnia; Z93.0 Tracheostomy status
CPT/HCPCS: A4663; J3490; J7030; J7120; Q9967

== ENCOUNTER → 2018-03-11 | Day surgery (SDC) | payer OTHER ==
[~2018-03-11] MED LIST changes: +ACET160S2 GT; +BISA10SU8 RC; +DOCU50LI GT; +FAMO-132 GT; +HEPA500034 IJ; +HYDR-3974 PO; -IOHEXOL 300MG/ML 100 ML INFUS..BTL ONE; -IV NORMAL SALINE 100 ML ONE; +LACT-209 GT; +LEVE500T20 GT; +MENT71OI TP; +MODA100T14 GT; -NORMAL SALINE FLUSH 10 ML DISP.SYRIN ONE; +POLY17PO4 GT
== END | disposition expired ==
LOC: DS 02-24 12:30 → UNDOADMIN 12:00 → MED 12:00 → DS 12:30 → UNDODISIN 16:00 → EDSTATUS 04-19 09:27
PROVIDERS: ATTEND Internal Medicine Nephrology
PROC: 0FT20ZZ Resection of Left Lobe Liver, Open Approach (ICD-10-PCS; principal; 2018-03-11)
PROC: 0FT Hepatobiliary System and Pancreas, Resection (ICD-10-PCS; 2018-03-11)
PROC: 0TT20ZZ Resection of Bilateral Kidneys, Open Approach (ICD-10-PCS; 2018-03-11)
DX: Z52.6 Liver donor (principal); Z52.4 Kidney donor; N17.9 Acute kidney failure, unspecified; D69.6 Thrombocytopenia, unspecified; D64.9 Anemia, unspecified